=== PATIENT | male | born 1935 | race Caucasian/White ===

== ENCOUNTER → 2017-04-21 05:00 | Outpatient (REF) | payer MEDICARE, OTHER, SELFPAY ==
[2017-04-21 09:29] LABS: Anion Gap 6 (5-15); BUN 15 mg/dL (7-18); BUN/Creat Ratio 10.8 RATIO (10-20); Calcium,Total 8.4 mg/dL (8.5-10.1); Chloride 105 mmol/L (98-107); Creatinine, Serum 1.39 mg/dL (0.70-1.30); EST Glomerular Filtration Rate 52 mL/min (>60); Est Glom Filt Rate - Afr Amer 63 mL/min (>60); Glucose 99 mg/dL (70-110); Potassium 3.9 mmol/L (3.5-5.1); Sodium Level 141 mmol/L (136-145)
== END ==
LOC: OLS.DANBUR 05:00
PROVIDERS: Visit Provider Family Medicine
DX: N40.0 Benign prostatic hyperplasia without lower urinary tract symptoms (principal); I10 Essential (primary) hypertension; E78.5 Hyperlipidemia, unspecified; E03.9 Hypothyroidism, unspecified
CPT/HCPCS: 36415; 80048

== ENCOUNTER 2017-05-14 20:41 | Observation (INO) | payer MEDICARE, OTHER, SELFPAY ==
[2017-05-14] VITALS (8 sets, daily range): BP systolic 98–117; BP diastolic 61–78; PULSE 64–104; RESP 18–28; TEMP 36.7–36.9; O2SAT 95–96; BMI 30.2; BMI 28.9; BMI 30.3
--- NOTE | 2017-05-14 20:50 | RAD_ITS ---
XR Chest 1 View INDICATION: CHEST PAIN COMPARISON: October 2016 TECHNIQUE: Portable chest FINDINGS: Heart size remains within normal limits. Pulmonary vascularity is unremarkable. Interstitial markings are coarsened and there is scarring seen in the right midlung field which appears approximately stable. RAD/Chest 1 View (Portable) IMPRESSION: Stable scarring in the right midlung field. COPD. No new infiltrate at 2126 Reported and signed by: Jeanne Doyle MD Electronically Signed: Jeanne Doyle MD at 20:25 EST Tel , Service support ,
--- NOTE | 2017-05-14 20:50 | EKG12_ITS ---
Test Reason : CP Blood Pressure : / mmHG Vent. Rate : 106 BPM Atrial Rate : 106 BPM P-R Int : 140 ms QRS Dur : 126 ms QT Int : 368 ms P-R-T Axes : 046 166 030 degrees QTc Int : 488 ms Sinus tachycardia Right bundle branch block Left posterior fascicular block Bifascicular block Inferior infarct , age undetermined Abnormal ECG Confirmed by CALLUM LAM, KYLIE ([id number]), editor index JONN GILLESPIE ([id number]) on 05/16/2017 1:25:58 PM Referred By: AKIRA Confirmed By:KYLIE NOLEN MD
[2017-05-14] MEDS: 0.9% Normal Saline 1,000 ML 150 ML IV (20:53)
--- NOTE | 2017-05-14 20:53 | ED.VISSUMM ---
- ER Visit Summary Date of Service: 05/14/17 Chief Complaint: Chest pain History of Present Illness: The patient is a 82 M with multiple comorbidities including prior stroke, remote CABG, hypertension, hyperlipidemia presents to the emergency department chest pain. Patient does have a history of dementia so history is hard to gather. He is at an assisted living facility. Apparently, over the past 2 days he has been having intermittent chest pain. Tonight, the pain worsened. He states he was getting out of the car and he had a heaviness across his chest and felt like his legs were weak. He became diaphoretic. On squad arrival, he was given aspirin and nitro. He did feel like the nitro was helping his pain. He states the pain has been intermittent and does seem to be made worse with exertion. He denies any recent stress test or heart catheterization. Physical Examination: Vital signs reviewed General: Well-nourished, well-developed Head: Normocephalic, atraumatic Eyes: Pupils equal and reactive, extraocular muscles intact Neck, supple, no lymphadenopathy Heart: Regular rate and rhythm Respiratory: No distress, clear bilaterally Abdomen: Soft, nontender, nondistended, no peritoneal signs Back: Nontender Extremities: Nontender, no edema, no cords Skin: Normal color no rash Neuro: Alert and oriented, no focal or lateralizing deficits Test Results: EKG demonstrates a new left posterior fascicular block. There is no acute ischemic change. Chest x-ray unremarkable. Screening labs unremarkable. Emergency Department Course and Treatment: Resents for chest pain. He does have a significant cardiac history. His EKG shows a new bifascicular block, changed from October 2016. The patient has had intermittent pain. He has negative cardiac enzymes. His pain is markedly improved with topical nitro. As the history is hard to gather given his history of dementia, I do feel that the patient will benefit from an observation for cardiac rule out. Patient was discussed with the hospitalist and will be admitted. Treatment Plan: [] Disposition: Admission Impression:. Chest pain 2. EKG changes This note was generated with [employer] software. It may contain incorrect words, spelling, and punctuation that were not noted in review of the chart prior to signing ED Disposition - Plan for ED Patient: Chief Complaint: Chest Pain Referrals: Chase Rene MD [Primary Care Provider] -
[2017-05-14 20:59] LABS: Absolute Lymphocyte Count 2.86 X10^3/ul (0.83-4.51); Absolute Neutrophil Count 2.6 X10^3/uL (2.0-7.7); Basophil# 0.02 X10^3/uL; Basophil% 0.3 % (0-1); Eosinophil# 0.24 X10^3/uL; Eosinophils% 3.8 % (0-5); Hematocrit 47.5 % (40-54); Hemoglobin 15.8 g/dl (13.0-16.5); Lymphocyte # 2.86 X10^3/ul (4.0); Lymphocyte % 45.8 % (19-41); Mean Corp Hgb Conc 33.3 g/gl (32-36); Mean Corpuscular Hgb 30.3 pg (27.0-32.0); Mean Corpuscular Volume 91.2 fL (80-94); Mean Platelet Vol. 9.5 fl (6.2-12.0); Monocyte# 0.53 X10^3/uL; Monocyte% 8.5 % (0-10); Neutrophil # 2.59 X10^3/uL (2.7-7.7); Neutrophil % 41.4 % (47-70); Platelet Count 182 K/mm3 (150-450); RBC Distribution Width CV 14.4 % (11.6-14.6); Red Blood Count 5.21 M/mm3 (4.6-6.2); White Blood Count 6.3 K/mm3 (4.4-11.0)
[2017-05-14 21:00] LABS: POSITIVE COUNT NO; POSITIVE DIFFERENTIAL NO; POSITIVE MORPHOLOGY NO
[2017-05-14] MEDS: Nitroglycerin Oint 1 INCH PACKET TRANSDERM. (21:01)
[2017-05-14 21:15] LABS: Anion Gap 9 (5-15); BUN 12 mg/dL (7-18); BUN/Creat Ratio 9.2 RATIO (10-20); Calcium,Total 7.7 mg/dL (8.5-10.1); Chloride 110 mmol/L (98-107); EST Glomerular Filtration Rate 56 mL/min (>60); Est Glom Filt Rate - Afr Amer 68 mL/min (>60); Estimated Creatinine Clearance 48.27 ml/min; Glucose 102 mg/dL (74-106); Potassium 3.4 mmol/L (3.5-5.1); Sodium Level 143 mmol/L (136-145)
--- NOTE | 2017-05-14 22:44 | PCM.HP.STD ---
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 He had 2 episodes of chest pain. He also had chest pain several days ago. However, the chest pain today was more severe and frequent. He had pain while getting out of his car. Pain was sharp and on his left chest. He felt as if someone was stabbing him with a sharp nail through his heart. Pain immediately stopped him in his track. He felt weak and diaphoretic after the chest pain. Nitro appeared to help relieve the pain. Nothing made it worse. Pain lasted for minutes. Past Medical History Past Medical History (Chronic Problems): Chronic Problems CAD (coronary artery disease) (Chronic) HTN (hypertension) (Chronic) HLD (hyperlipidemia) (Chronic) 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) Asthma (Chronic) Depression (Chronic) Constipation (Chronic) CKD (chronic kidney disease), stage III (Chronic) Allergies fentanyl [From Duragesic] Allergy (Verified 10/02/16 22:54) Unknown Penicillins Allergy (Verified 10/02/16 22:54) Swelling Home Medications: Ambulatory Orders Medication Instructions Recorded Duloxetine Hcl [Cymbalta] 30 mg PO BID 05/31/14 Dorzolamide Hydrochloride/Ti 1 drop EACH EYE BID bottle 09/20/16 [Cosopt Opth Drops] Mirtazapine [Remeron] 7.5 mg PO QHS tablet 09/20/16 Pravastatin [Pravachol] 40 mg PO DAILY@2200 tablet 09/20/16 Quetiapine Fumarate [Seroquel] 300 mg PO QHS tablet 09/20/16 Senna/Docusate Sodium [Senokot-S] 2 tablet PO DAILY #60 tablet 09/20/16 Clopidogrel Bisulfate [Plavix] 75 mg PO DAILY 10/03/16 Tamsulosin HCl [Flomax] 0.4 mg PO DAILY 10/03/16 Acetaminophen [Tylenol Tablet] 650 mg PO Q4H PRN PRN tablet 10/06/16 Aspirin [Aspirin, Baby] 81 mg PO DAILY@0800 #90 tab.chew 10/06/16 Clonazepam [Klonopin] 0.5 mg PO BID 05/14/17 Clonazepam [Klonopin] 0.5 mg PO PRN PRN 05/14/17 Surgical History: no surgical history Smoking Status: Former smoker - *Family History Maternal History Items: Unknown Paternal History Items: Unknown Review of Systems Constitutional: Denies: Chills, Fever, Weight Change HEENT: Denies: Head Aches, Sinus Congestion, Sinus Drainage Cardiovascular: Reports: Chest Pain, Heaviness. Denies: Palpitations Respiratory: Denies: Cough, Shortness of breath at rest, Sputum production Gastrointestinal: Denies: Abdominal Pain, Nausea, Vomiting Genitourinary: Denies: Dysuria Musculoskeletal: Denies: Joint Pain, Joint Tenderness Skin: Denies: Rash, Wounds Neurological: Denies: Numbness, Tingling, Focal weakness Psychiatric: Denies: Anxiety, Depression, Homicidal Ideations, Suicidal Ideations Hematologic/ Lymphatic: Denies: Easy Bruising, Easy Bleeding VTE Information - Inpt Only VTE Present on Admission: No VTE Mechan Device Prophylaxis: SCD's VTE Pharm Prophylaxis ordered?: Yes Patient Problems: Active and Suspected Problems Chest pain (Acute) - Physical Exam General: Alert, Oriented x3, Cooperative HEENT: Atraumatic, PERRLA, EOMI, Normocephalic Neck: Supple, No JVD, Negative Carotid Bruits Lungs: Clear to auscultation, Normal air movement Cardiovascular: Regular rate, Murmur - II/ systolic murmur Abdomen: Bowel Sounds Present, Soft, Non Tender Extremities: No edema, Capillary Refill Less than 3 Seconds Skin: No rashes, No breakdown Musculoskeletal: No Tenderness to Palpation of Joints or Extremities Neurological: Cranial nerves II-XII grossly intact Psych/Mental Status: Normal Affect, Appropriate Vital Signs Temp Pulse Resp BP Pulse Ox 98.4 F 91 28 H 117/76 96 05/14/17 20:43 05/14/17 22:29 05/14/17 22:29 05/14/17 22:29 05/14/17 22:29 Assessment/Plan Active and Suspected Problems Chest pain (Acute) 82 year old male w/ h/o stroke, dementia, CABG, HTN and lipidemia admitted for chest pain. 1) Chest pain: Heart score 5 EKG disclosed new bifascicular block. First trop negative. Will get serial trops. Will get ECHO. Stress test in AM. C/w medical management. 2) H/o CABG: Resume home meds. Monitor. 3) Chronic issues: HTN, lipidemia, stroke, dementia: Resume home meds. 4) Prophylaxis: Heparin / SCD.
[2017-05-15] VITALS (11 sets, daily range): BP systolic 110–133; BP diastolic 65–78; PULSE 60–81; RESP 16–18; TEMP 36.4–37.2; O2SAT 97
[2017-05-15] MEDS: 0.9% Normal Saline 1,000 ML 100 ML IV ×2 (03:20→15:05)
[2017-05-15 05:28] LABS: Absolute Lymphocyte Count 2.34 X10^3/ul (0.83-4.51); Absolute Neutrophil Count 2.4 X10^3/uL (2.0-7.7); Basophil# 0.02 X10^3/uL; Basophil% 0.4 % (0-1); Eosinophil# 0.25 X10^3/uL; Eosinophils% 4.6 % (0-5); Hematocrit 43.8 % (40-54); Hemoglobin 14.6 g/dl (13.0-16.5); Lymphocyte # 2.34 X10^3/ul (4.0); Lymphocyte % 42.7 % (19-41); Mean Corp Hgb Conc 33.3 g/gl (32-36); Mean Corpuscular Hgb 30.3 pg (27.0-32.0); Mean Corpuscular Volume 90.9 fL (80-94); Mean Platelet Vol. 9.6 fl (6.2-12.0); Monocyte# 0.48 X10^3/uL; Monocyte% 8.8 % (0-10); Neutrophil # 2.35 X10^3/uL (2.7-7.7); Neutrophil % 42.8 % (47-70); Platelet Count 190 K/mm3 (150-450); RBC Distribution Width CV 14.6 % (11.6-14.6); RBC Distribution Width SD 47.6 fl (35.1-43.9); Red Blood Count 4.82 M/mm3 (4.6-6.2); White Blood Count 5.5 K/mm3 (4.4-11.0)
[2017-05-15 05:32] LABS: POSITIVE COUNT NO; POSITIVE DIFFERENTIAL NO; POSITIVE MORPHOLOGY NO
--- NOTE | 2017-05-15 05:55 | ECHOD_ITS ---
Reason For Study: CHEST PAIN Procedure This was a 2D Doppler, Color Flow transthoracic echocardiogram. The exam was of poor technical quality due to poor acoustic windows. Contrast injection was performed. Exam performed portable in patient room. Left Ventricle Normal LV size. Left ventricular systolic function is normal. The estimated ejection fraction is 60 %. No regional wall motion abnormalities noted. Right Ventricle Normal RV size. Normal systolic function. Atria Normal left atrium. Normal right atrium. Mitral Valve Normal mitral valve. Tricuspid Valve Normal tricuspid valve. Trivial tricuspid valve insufficiency. Aortic Valve The aortic valve is not well visualized. Mild focal aortic valve calcification. Peak aortic valve gradient 29 mmHg. Mean aortic valve gradient 18 mmHg. Calculated aortic valve area (continuity equation) is 1.6 cm2. Pulmonic Valve The pulmonic valve is not well visualized. Great Vessels Calcified aortic root. The pulmonary artery is normal size. Normal inferior vena cava. Pericardium/Pleural No pericardial effusion. Medication Diluted definity 3ml given slow IV push to enhance endocardial definition. MMode/2D Measurements & Calculations RVDd: 3.6 cm LVOT diam: 2.2 cm Ao root diam: 3.5 cm LVOT area: 3.8 cm2 LAV(MOD-bp): 34.5 ml LVAd ap4: 25.6 cm2 SV(MOD-sp4): 52.2 ml LAV(MOD-bp) Indexed: 16.2 ml/m2 EDV(MOD-sp4): 70.4 ml LAV(MOD-sp2): 41.5 ml EDV(sp4-el): 73.2 ml LAV(MOD-sp4): 22.9 ml LVAs ap4: 11.9 cm2 ESV(MOD-sp4): 18.2 ml ESV(sp4-el): 18.9 ml EF(MOD-sp4): 74.1 % EF(sp4-el): 74.1 % SV(sp4-el): 54.2 ml LA A4 area: 11.7 cm2 RA A4 area: 11.2 cm2 Doppler Measurements & Calculations MV E max axel: 83.5 cm/sec MV V2 max: 104.4 cm/sec Ao V2 max: 268.0 cm/sec MV max P.4 mmHg Ao max P.0 mmHg MV V2 mean: 63.8 cm/sec Ao V2 mean: 197.9 cm/sec MV mean P.8 mmHg Ao mean P.9 mmHg MV V2 VTI: 33.2 cm Ao V2 VTI: 60.2 cm MVA(VTI): 3.2 cm2 KIRSTEN(I,D): 1.7 cm2 KIRSTEN(V,D): 1.6 cm2 LV V1 max: 115.5 cm/sec SV(LVOT): 104.7 ml TR max axel: 186.6 cm/sec LV V1 max P.3 mmHg TR max P.9 mmHg LV V1 mean P.0 mmHg LV V1 mean: 80.7 cm/sec LV V1 VTI: 27.7 cm Interpretation Summary Normal LV size. Left ventricular systolic function is normal. The estimated ejection fraction is 60 %. Mild focal aortic valve calcification. Calculated aortic valve area (continuity equation) is 1.6 cm2. Calcified aortic root. Ordering Physician: Alex Andres Referring Physician: MAGGIE BHARDWAJ Performed By: Rosa Dwyer, TAO, RVT
--- NOTE | 2017-05-15 05:57 | RAD_ITS ---
STUDY: X-RAY CHEST REASON FOR EXAM: Male, 82 years old. Chest pain TECHNIQUE: PA and lateral views of the chest. COMPARISON: October 02, 2016 chest x-ray FINDINGS: There is a focal opacity in the right upper lobe which is worse since prior studies. There is bandlike density overlying the right hemidiaphragm. The lungs are somewhat hyperlucent suggesting underlying emphysematous change. There is no demonstrated pleural abnormality. Sternal cerclage wires are present from a prior sternotomy. Normal mediastinum and kya. Normal visualized pulmonary arteries. There is atherosclerotic tortuosity of the aortic arch and descending thoracic aorta. Normal visualized thoracic spine. Normal visualized ribs, clavicles, and shoulders. There is no demonstrated abnormality of the visualized soft tissue structures of the upper abdomen. RAD/Chest PA and Lateral IMPRESSION: Larger right upper lobe patchy opacity suspicious for pneumonia. Status post sternotomy. N.B. : The above information has been verbally conveyed by Kirsten Camara MD to Mynor Guadalupe , Covering Physician, on 05/15/2017 08:44:14 (ET). Electronically Signed: Kirsten Camara MD at 8:32 EST Tel , Service support , N.B. : The above information has been verbally conveyed by Kirsten Camara MD to Mynor Guadalupe , Covering Physician, on 05/15/2017 08:44:14 (ET).
[2017-05-15 06:57] LABS: AST(SGOT) 21 U/L (15-37); Alanine Aminotransfer ALT/SGPT 25 U/L (16-61); Alkaline Phosphatase 49 U/L (45-117); Anion Gap 9 (5-15); BUN 13 mg/dL (7-18); BUN/Creat Ratio 9.9 RATIO (10-20); Calcium,Total 7.6 mg/dL (8.5-10.1); Chloride 108 mmol/L (98-107); Cholesterol 106 mg/dL (200); Creatinine, Serum 1.31 mg/dL (0.70-1.30); EST Glomerular Filtration Rate 56 mL/min (>60); Est Glom Filt Rate - Afr Amer 68 mL/min (>60); Estimated Creatinine Clearance 46.44 ml/min; Glucose 92 mg/dL (74-106); High Density Lipoprotein 36 mg/dL; Magnesium 2.2 mg/dL (1.6-2.6); Potassium 3.8 mmol/L (3.5-5.1); Sodium Level 141 mmol/L (136-145); Thyroid Stim Hormone (TSH) 3.83 uIU/mL (0.358-3.74); Triglycerides 87 mg/dL; Very Low Density Lipoprotein 17 mg/dL (5-40)
[2017-05-15] MEDS: Aspirin 81 MG TAB.CHEW PO (08:19)
--- NOTE | 2017-05-15 08:45 | CT_ITS ---
STUDY: CT CHEST WITHOUT CONTRAST REASON FOR EXAM: Male, 82 years old. Right lung infiltrate chest pain and hypertension CABG RADIATION DOSAGE (If Supplied By Facility): CTDIvol = ( 19.12 ) mGy, DLP = ( 683.40 ) mGycm TECHNIQUE: Transaxial imaging was performed without the administration of intravenous contrast material. Multiplanar coronal and sagittal images were reformatted. Individualized dose optimization techniques were used for this CT. COMPARISON: Chest x-ray May 15, 2017, CT scan chest March 17, 2016 FINDINGS: Within the right upper lobe there is a small focal nodule which is new since prior study in the region of prior fibrosis or groundglass opacity that measures 1.1 x 0.9 cm. This is adjacent to focal opacity or developing nodular density measures roughly 1.8 x 1.7 cm. There is trace atelectasis in the lung bases left greater than right. There are coronary calcifications. There is borderline cardiac enlargement. There is postoperative change. Sternotomy wires are seen midline. There are nonspecific subcentimeter lymph nodes in the mediastinum. There is a precarinal calcified lymph nodes stable since prior study. Is a calcified granuloma in the right. There is a right infrahilar calcification compatible with old granulomatous disease. There is a noncalcified lymph node measuring 1.1 cm between the right lower bronchus and the esophagus measuring 1.1 cm similar to prior study. Normal unenhanced pulmonary arteries. There is atherosclerotic calcification of the aortic arch with tortuosity and elongation of the aortic arch and descending thoracic aorta. There are multi-level degenerative changes of the thoracic spine. There is a small hiatal hernia which is surrounded by small amount of intraperitoneal fat. There is colonic interposition with the colon anterior to the liver. There is a mildly inhomogeneous appearance of the gallbladder suggesting probable gallstones. This visualize atherosclerotic disease aorta. The adrenal glands bilaterally are of normal size. CT/Chest without Contrast IMPRESSION: Interval development of a 1.1 x 0.8 cm focal nodular opacity in the right upper lobe with adjacent inflammatory change. Potentially this could represent a small focal infection however neoplasm should be considered until proven otherwise. Status post sternotomy coronary artery disease minimal bilateral lower lobe atelectasis similar to the prior study. Findings suggestive of cholelithiasis. Small hiatal hernia. Nonspecific stable mediastinal lymphadenopathy including evidence of old granulomatous disease. N.B. : The above information has been verbally conveyed by Kirsten Camara MD to Dr. Mynor Perez, Covering Physician, on 05/15/2017 10:17:10 (ET). Electronically Signed: Kirsten Camara MD at 10:12 EST Tel , Service support , N.B. : The above information has been verbally conveyed by Kirsten Camara MD to Dr. Mynor Perez, Covering Physician, on 05/15/2017 10:17:10 (ET).
--- NOTE | 2017-05-15 10:20 | PN_ITS ---
Patient Problems: Active and Suspected Problems Chest pain (Acute) Subjective: Patient was seen and examined today, he does not complain of any chest pain, been negative, he states that he had severe chest pain yesterday, he is a poor informant due to the fact he has dementia. I explained to him that he would undergo a stress test tomorrow and an echocardiogram. In 2014 he had a cardiac catheterization which showed a 60-70% occlusion of the circumflex and a chronically occluded right coronary artery, this was followed up by a stress test which showed no reversible ischemia. I was notified by radiology today that his chest x-ray showed a right midlung infiltrate, his chest x-ray last night was read out as scarring in the right lung. I have ordered a CT today without contrast to look at the area. Lives in assisted living at [facility] - Physical Exam General: Alert, Cooperative, No apparent distress, Well developed, Well nourished HEENT: Atraumatic, PERRLA, EOMI, Normocephalic Oral: Moist Mucosa Neck: Supple, No JVD, Negative Carotid Bruits, No Nuchal Rigidity, Trachea Midline, Thyroid Normal Size and Texture Lungs: Clear to auscultation, Normal air movement, No rhonchi, No wheeze, No rales Cardiovascular: Regular rate, Regular Rhythm, Normal S1, Normal S2, No murmurs, No Ectopic Activity, PMI Normal, No rub noted, No Gallop Abdomen: Bowel Sounds Present, Soft, Non Tender, Non-Distended, No hernias noted Extremities: No clubbing, No cyanosis, No edema, Capillary Refill Less than 3 Seconds Skin: No rashes, No breakdown Musculoskeletal: No Tenderness to Palpation of Joints or Extremities Neurological: Cranial nerves II-XII grossly intact, Neuro grossly intact, Motor Exam 5/5 strength throughout, Sensory exam intact to light touch and pain, Coordination normal Psych/Mental Status: Normal Affect, Appropriate, - - There is mild confusion noted Vital Signs Temp Pulse Resp BP Pulse Ox 97.5 F L 60 18 113/71 97 05/15/17 04:12 05/15/17 07:00 05/15/17 04:12 05/15/17 04:12 05/15/17 07:50 Oxygen Flow Rate 2 Oxygen Delivery Method Nasal Cannula Weight: 93.7 kg Body Mass Index (BMI) 28.9 Intake and Output for Last 24 Hours 05/13/17 05/14/17 05/15/17 23:59 23:59 23:59 Intake Total 240 / 240 786 / 786 Balance 240 / 240 786 / 786 Laboratory Tests Past 24 Hrs 05/15/17 05/15/17 05/15/17 00:30 04:40 04:40 WBC 5.5 RBC 4.82 Hgb 14.6 Hct 43.8 MCV 90.9 MCH 30.3 MCHC 33.3 RDW 14.6 RDW Differential 47.6 H Plt Count 190 MPV 9.6 Immature Gran % (Auto) 0.700 Neut % (Auto) 42.8 L Lymph % (Auto) 42.7 H [place] % (Auto) 8.8 Eos % (Auto) 4.6 Baso % (Auto) 0.4 Absolute Neuts (auto) 2.4 Absolute Lymphs (auto) 2.34 Total Counted Not Reportable Sodium 141 Potassium 3.8 Chloride 108 H Carbon Dioxide 24.0 Anion Gap 9 BUN 13 Creatinine 1.31 H Estim Creat Clear Calc 46.44 Est GFR (MDRD) Af Amer 68 Est GFR (MDRD) Non-Af 56 L BUN/Creatinine Ratio 9.9 L Glucose 92 Calcium 7.6 L Magnesium 2.2 Total Bilirubin 0.50 AST 21 ALT 25 Alkaline Phosphatase 49 Troponin I < 0.02 Total Protein 6.0 L Albumin 3.0 L Globulin 3.0 Albumin/Globulin Ratio 1.0 Triglycerides 87 Cholesterol 106 LDL Cholesterol 53 VLDL Cholesterol 17 HDL Cholesterol 36 L TSH 3.83 H 05/15/17 04:40 WBC RBC Hgb Hct MCV MCH MCHC RDW RDW Differential Plt Count MPV Immature Gran % (Auto) Neut % (Auto) Lymph % (Auto) [place] % (Auto) Eos % (Auto) Baso % (Auto) Absolute Neuts (auto) Absolute Lymphs (auto) Total Counted Sodium Potassium Chloride Carbon Dioxide Anion Gap BUN Creatinine Estim Creat Clear Calc Est GFR (MDRD) Af Amer Est GFR (MDRD) Non-Af BUN/Creatinine Ratio Glucose Calcium Magnesium Total Bilirubin AST ALT Alkaline Phosphatase Troponin I < 0.02 Total Protein Albumin Globulin Albumin/Globulin Ratio Triglycerides Cholesterol LDL Cholesterol VLDL Cholesterol HDL Cholesterol TSH Assessment/Plan Active and Suspected Problems Chest pain (Acute) #1 chest pain in a patient with known coronary artery disease-enzymes are negative so far, patient will undergo a pharmacological resting nuclear stress test tomorrow and echocardiogram. #2 abnormal chest x-ray-CT scan of the chest today showed a nodule approximately 1 cm in diameter surrounded by an area of inflammation according to the radiologist in the right upper lung. This will need to be worked up further after the patient has his cardiac workup #3 hyperlipidemia #4 dementia #5 hypertension #6 chronic kidney disease stage III #7 depression Code Visit Inpatient E&M: 24716 Subs Hosp L2
[2017-05-15] MEDS: DULoxetine Hcl 30 MG Capsule PO ×2 (10:43→21:21)
[2017-05-15] MEDS: Carvedilol 3.125 MG TABLET PO ×2 (10:43→21:21)
[2017-05-15] MEDS: Clopidogrel Bisulfate 75 MG Tablet PO (10:43)
[2017-05-15] MEDS: Tamsulosin HCl 0.4 MG Capsule PO (10:43)
[2017-05-15] MEDS: Senna/Docusate Sodium 1 Tablet 2 TABLET PO (10:45)
[2017-05-15] MEDS: clonazePAM 0.5 MG Tablet PO ×2 (10:47→21:29)
[2017-05-15] MEDS: Pravastatin 40 MG Tablet PO (21:20)
[2017-05-15] MEDS: QUEtiapine 100 MG Tablet 300 MG PO (21:20)
[2017-05-15] MEDS: Mirtazapine 15 MG Tablet 7.5 MG PO (21:21)
[2017-05-15] MEDS: Zolpidem Tartrate 5 MG Tablet PO (22:25)
[2017-05-16] VITALS (9 sets, daily range): BP systolic 108–129; BP diastolic 63–69; PULSE 63–73; RESP 16–18; TEMP 36.4–36.9; O2SAT 93–99
[2017-05-16] MEDS: 0.9% Normal Saline 1,000 ML 100 ML IV ×2 (00:15→11:05)
[2017-05-16] MEDS: Clopidogrel Bisulfate 75 MG Tablet PO (05:43)
[2017-05-16] MEDS: Aspirin 81 MG TAB.CHEW PO (05:43)
--- NOTE | 2017-05-16 05:55 | EKG12_ITS ---
Test Reason : AM Blood Pressure : / mmHG Vent. Rate : 073 BPM Atrial Rate : 073 BPM P-R Int : 162 ms QRS Dur : 132 ms QT Int : 428 ms P-R-T Axes : 042 062 038 degrees QTc Int : 471 ms Normal sinus rhythm Right bundle branch block Abnormal ECG When compared with ECG of 14-MAY-2017 20:42, MANUAL COMPARISON REQUIRED, DATA IS UNCONFIRMED Confirmed by TERRANCE LAM, JAJA ([id number]), publishing editor JONN GILLESPIE ([id number]) on 05/17/2017 2:00:57 PM Referred By: AUGUSTO Confirmed By:JAJA CARLOS MD
[2017-05-16 06:08] LABS: Absolute Lymphocyte Count 1.76 X10^3/ul (0.83-4.51); Absolute Neutrophil Count 2.4 X10^3/uL (2.0-7.7); Basophil# 0.01 X10^3/uL; Basophil% 0.2 % (0-1); Eosinophil# 0.21 X10^3/uL; Eosinophils% 4.5 % (0-5); Hematocrit 42.9 % (40-54); Hemoglobin 14.6 g/dl (13.0-16.5); Lymphocyte # 1.76 X10^3/ul (4.0); Lymphocyte % 37.8 % (19-41); Mean Corpuscular Hgb 30.7 pg (27.0-32.0); Mean Corpuscular Volume 90.1 fL (80-94); Mean Platelet Vol. 9.5 fl (6.2-12.0); Monocyte% 6.5 % (0-10); Neutrophil # 2.36 X10^3/uL (2.7-7.7); Neutrophil % 50.8 % (47-70); Platelet Count 181 K/mm3 (150-450); RBC Distribution Width CV 14.4 % (11.6-14.6); RBC Distribution Width SD 47.4 fl (35.1-43.9); Red Blood Count 4.76 M/mm3 (4.6-6.2); White Blood Count 4.7 K/mm3 (4.4-11.0)
[2017-05-16 06:17] LABS: International Normalized Ratio 1.1; Prothrombin Time (Protime)PT. 13.7 SECONDS (11.7-14.9)
[2017-05-16 06:18] LABS: Partial Thromboplast Time 36.4 Seconds (24.1-36.2)
[2017-05-16 06:27] LABS: Anion Gap 8 (5-15); BUN 11 mg/dL (7-18); BUN/Creat Ratio 9.9 RATIO (10-20); Calcium,Total 7.8 mg/dL (8.5-10.1); Chloride 110 mmol/L (98-107); Creatinine, Serum 1.11 mg/dL (0.70-1.30); EST Glomerular Filtration Rate 68 mL/min (>60); Est Glom Filt Rate - Afr Amer 82 mL/min (>60); Glucose 94 mg/dL (74-106); Potassium 3.8 mmol/L (3.5-5.1); Sodium Level 141 mmol/L (136-145)
[2017-05-16 06:32] LABS: POSITIVE COUNT NO; POSITIVE DIFFERENTIAL NO; POSITIVE MORPHOLOGY NO
--- NOTE | 2017-05-16 10:39 | STRESSREP ---
Stress Test Report Pharmacologic myocardial perfusion stress test. 82-year-old man with a history of chest pain. Stress protocol Resting EKG demonstrates sinus rhythm with a rate of 68 bpm and a right bundle branch block. 0.4 mg of regadenoson was infused per usual protocol followed by rapid intravenous saline flush injection continuous EKG monitoring was performed. The maximum heart rate attained was 83 bpm which was 59% of the maximum predicted heart rate the maximum workload attained was 1 metabolic equivalent. The patient maintained sinus rhythm throughout the recording. At rest there were no ST or T-wave changes noted suggest abnormal flow reserve at peak infusion no ST or T-wave changes were noted suggest abnormal flow reserve. No clinical angina was noted. Myocardial perfusion protocol: 14.1 mCi of technetium 99m sestamibi was injected at rest. 0.4 mg regadenoson was infused per usual protocol. At peak infusion 44.6 mCi of technetium 99m sestamibi was injected. Stress images were obtained. Stress and rest images were reconstructed and compared in the short axis vertical long and horizontal long axis. Gated images were also obtained. Perfusion SPECT analysis:. Review of the stress images demonstrate a medium-sized defect noted involving the basal to mid inferior wall on the stress images as well as the resting images. The above was suggestive of a previous inferior infarct with no reversibility noted suggest ischemia. gated SPECT analysis: The gated ejection fraction is noted to be 81%. Conclusion: Pharmacologic myocardial perfusion stress test with no evidence of ischemia. Previous inferior infarct is noted in a medium-sized zone. Preserved ejection fraction.
[2017-05-16] MEDS: Senna/Docusate Sodium 1 Tablet 2 TABLET PO (10:57)
[2017-05-16] MEDS: Tamsulosin HCl 0.4 MG Capsule PO (10:57)
[2017-05-16] MEDS: DULoxetine Hcl 30 MG Capsule PO (10:57)
[2017-05-16] MEDS: Carvedilol 3.125 MG TABLET PO (10:57)
[2017-05-16] MEDS: clonazePAM 0.5 MG Tablet PO (11:04)
--- NOTE | 2017-05-16 15:36 | PCM.DC ---
- Discharge Diagnoses Current Active Problems: Current Active and Chronic Problems Chest pain (Acute) You will use the following diet at home:: No restrictions Your food should be the consistency of: Regular Your liquids should be the consistency of: Regular/Thin Discharge Activity: Return to Normal Activity Weight Bearing Status: Full weight bearing Allergies/Adverse Reactions: Allergies fentanyl [From Duragesic] Allergy (Verified 10/02/16 22:54) Unknown Penicillins Allergy (Verified 10/02/16 22:54) Swelling Medications to take at Discharge Duloxetine Hcl [Cymbalta] 30 mg PO BID 05/31/14 Dorzolamide Hydrochloride/Ti [Cosopt Opth Drops] 1 drop EACH EYE BID bottle 09/20/16 Mirtazapine [Remeron] 7.5 mg PO QHS tablet 09/20/16 Pravastatin [Pravachol] 40 mg PO DAILY@2200 tablet 09/20/16 Quetiapine Fumarate [Seroquel] 300 mg PO QHS tablet 09/20/16 Senna/Docusate Sodium [Senokot-S] 2 tablet PO DAILY #60 tablet 09/20/16 Clopidogrel Bisulfate [Plavix] 75 mg PO DAILY 10/03/16 Tamsulosin HCl [Flomax] 0.4 mg PO DAILY 10/03/16 Acetaminophen [Tylenol Tablet] 650 mg PO Q4H PRN PRN tablet 10/06/16 Aspirin [Aspirin, Baby] 81 mg PO DAILY@0800 #90 tab.chew 10/06/16 Clonazepam [Klonopin] 0.5 mg PO BID 05/14/17 Clonazepam [Klonopin] 0.5 mg PO PRN PRN 05/14/17 Primary Care Physician: Chase Rene MD [Primary Care Provider] - Please follow up with your Primary Care Physician in: in 2-3 weeks
--- NOTE | 2017-05-16 15:55 | CASEMGMT ---
Due to pt's hx of dementia, this RN SOLIS spoke with pt's daughter, Liliana Abrams, via phone regarding MCLEOD form at this time. Explanation done at this time, daughter voices understanding and agrees to MCLEOD form at this time and states no further questions/concerns at this time. Copy of MCLEOD form sent with pt with discharge instructions. Meng WANG CM
--- NOTE | 2017-05-16 16:50 | NURSING ---
Report called to Usha WANG, at [facility].
--- NOTE | 2017-05-16 23:08 | PCM.DC.SUM ---
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 Workup in the emergency room included an EKG which showed no evidence of ischemic changes, chest x-ray was unremarkable, labs were also unremarkable including troponin. Patient was placed into observation status on PCU, cardiac enzymes were cycled and these remained normal. Patient underwent an echocardiogram and a resting pharmacological nuclear stress test on 05/16/17, stress test showed no evidence of reversible ischemia and echocardiogram showed preserved EF. On 05/16/17, patient was seen and examined and felt to be in stable condition for return to assisted living Discharge Activity: Return to Normal Activity Weight Bearing Status: Full weight bearing Home Medications: Medications to take at Discharge Duloxetine Hcl [Cymbalta] 30 mg PO BID 05/31/14 Dorzolamide Hydrochloride/Ti [Cosopt Opth Drops] 1 drop EACH EYE BID bottle 09/20/16 Mirtazapine [Remeron] 7.5 mg PO QHS tablet 09/20/16 Pravastatin [Pravachol] 40 mg PO DAILY@2200 tablet 09/20/16 Quetiapine Fumarate [Seroquel] 300 mg PO QHS tablet 09/20/16 Senna/Docusate Sodium [Senokot-S] 2 tablet PO DAILY #60 tablet 09/20/16 Clopidogrel Bisulfate [Plavix] 75 mg PO DAILY 10/03/16 Tamsulosin HCl [Flomax] 0.4 mg PO DAILY 10/03/16 Acetaminophen [Tylenol Tablet] 650 mg PO Q4H PRN PRN tablet 10/06/16 Aspirin [Aspirin, Baby] 81 mg PO DAILY@0800 #90 tab.chew 10/06/16 Clonazepam [Klonopin] 0.5 mg PO BID 05/14/17 Clonazepam [Klonopin] 0.5 mg PO PRN PRN 05/14/17 Primary Care Physician: Chase Rene MD [Primary Care Provider] - Please follow up with your Primary Care Physician in: in 2-3 weeks Disposition: Asstd Living/Non-Skill NH Minutes spent on discharge:: 25 Patient Condition:: Stable Meaningful Use Info Meaningful Use Diagnoses (Choose all that apply): None applicable Code Visit OBSV E&M: 99740 Observation care discharge
--- NOTE | 2017-05-16 23:11 | DS.PCM_ITS ---
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 Workup in the emergency room included an EKG which showed no evidence of ischemic changes, chest x-ray was unremarkable, labs were also unremarkable including troponin. Patient was placed into observation status on PCU, cardiac enzymes were cycled and these remained normal. Patient underwent an echocardiogram and a resting pharmacological nuclear stress test on 05/16/17, stress test showed no evidence of reversible ischemia and echocardiogram showed preserved EF. On 05/16/17, patient was seen and examined and felt to be in stable condition for return to assisted living Discharge Activity: Return to Normal Activity Weight Bearing Status: Full weight bearing Home Medications: Medications to take at Discharge Duloxetine Hcl [Cymbalta] 30 mg PO BID 05/31/14 Dorzolamide Hydrochloride/Ti [Cosopt Opth Drops] 1 drop EACH EYE BID bottle Mirtazapine [Remeron] 7.5 mg PO QHS tablet 09/20/16 Pravastatin [Pravachol] 40 mg PO DAILY@2200 tablet 09/20/16 Quetiapine Fumarate [Seroquel] 300 mg PO QHS tablet 09/20/16 Senna/Docusate Sodium [Senokot-S] 2 tablet PO DAILY #60 tablet 09/20/16 Clopidogrel Bisulfate [Plavix] 75 mg PO DAILY 10/03/16 Tamsulosin HCl [Flomax] 0.4 mg PO DAILY 10/03/16 Acetaminophen [Tylenol Tablet] 650 mg PO Q4H PRN PRN tablet 10/06/16 Aspirin [Aspirin, Baby] 81 mg PO DAILY@0800 #90 tab.chew 10/06/16 Clonazepam [Klonopin] 0.5 mg PO BID 05/14/17 Clonazepam [Klonopin] 0.5 mg PO PRN PRN 05/14/17 Primary Care Physician: Chase Rene MD [Primary Care Provider] - Please follow up with your Primary Care Physician in: in 2-3 weeks Disposition: Asstd Living/Non-Skill NH Minutes spent on discharge:: 25 Patient Condition:: Stable Meaningful Use Info Meaningful Use Diagnoses (Choose all that apply): None applicable Code Visit OBSV E&M: 17830 Observation care discharge
== END 2017-05-16 15:37 | disposition home or self-care (01) ==
LOC: ED 21:12 → PCU 22:41
PROVIDERS: Admitting Provider Internal Medicine; Emergency Provider Emergency Medicine; Family Provider Family Medicine; PCP Family Medicine; Visit Provider Internal Medicine
DX: R07.89 Other chest pain (principal); I25.10 Atherosclerotic heart disease of native coronary artery without angina pectoris; E78.5 Hyperlipidemia, unspecified; F10.21 Alcohol dependence, in remission; I12.9 Hypertensive chronic kidney disease with stage 1 through stage 4 chronic kidney disease, or unspecified chronic kidney disease; N18.3 Chronic kidney disease, stage 3 (moderate); F03.90 Unspecified dementia, unspecified severity, without behavioral disturbance, psychotic disturbance, mood disturbance, and anxiety; F41.9 Anxiety disorder, unspecified; F32.9 Major depressive disorder, single episode, unspecified; R91.1 Solitary pulmonary nodule; K59.09 Other constipation; J45.909 Unspecified asthma, uncomplicated; Z79.02 Long term (current) use of antithrombotics/antiplatelets; Z79.899 Other long term (current) drug therapy; Z79.82 Long term (current) use of aspirin; Z95.1 Presence of aortocoronary bypass graft; Z86.73 Personal history of transient ischemic attack (TIA), and cerebral infarction without residual deficits; Z87.891 Personal history of nicotine dependence
CPT/HCPCS: 36415; 71045; 71046; 71250; 78452; 80048; 80053; 80061; 83735; 84443; 84484; 85025; 85610; 85730; 93005; 93017; 93306; 96360; 96361; 96372; 97162; 97165; 99218; 99285; A9500; J7030; Q9957; A4216; C8929; G0378; J2785

== ENCOUNTER 2017-10-07 18:56 | Emergency (ER) | payer MEDICARE, OTHER, SELFPAY ==
[2017-10-07 18:57] VITALS: BP 151/93; PULSE 96; RESP 18; TEMP 37.1; O2SAT 96; BMI 28.8
--- NOTE | 2017-10-07 19:15 | CT_ITS ---
STUDY: CT BRAIN WITHOUT CONTRAST REASON FOR EXAM: Male, 82 years old. Trauma RADIATION DOSAGE (If Supplied By Facility): CTDIvol = ( 60.81 ) mGy, DLP = ( 1089.89 ) mGycm TECHNIQUE: Transaxial CT imaging of the brain was performed without administration of intravenous contrast material. Individualized dose optimization techniques were used for this CT. COMPARISON: September 02, 2016. FINDINGS: Normal soft tissue structures. Normal calvarium. Calcification of the cavernous carotid Moderate atrophy and periventricular white matter ischemic changes.. Normal basal ganglia and thalami. Normal brainstem. Normal cerebellum. There is no intracranial hemorrhage. There are no findings of an acute ischemic infarction. Postsurgical changes of the orbits. Normal visualized paranasal sinuses. CT/Brain/Head without Contrast IMPRESSION: Moderate atrophy and periventricular white matter ischemic changes.. No evidence for acute intracranial bleed Electronically Signed: Trae Clancy MD at 19:56 EDT , Service support ,
[2017-10-07] MEDS: Acetaminophen 500 MG Tablet 1000 MG PO (19:21)
[2017-10-07] MEDS: Diphth,Pertuss(Acell),Tet Vac 0.5 ML Vial IM (19:21)
[2017-10-07 19:25] VITALS: O2SAT 97
--- NOTE | 2017-10-07 20:23 | ED.VISSUMM ---
- ER Visit Summary Date of Service: 10/07/17 Chief Complaint: Fall History of Present Illness: The patient is a [address] Chase Rene. He reports that he usually uses a cane and a walker to get around. He states he is an area of his house that it was very difficult to use his walker and he lost his balance and fell. He hit his face on the ground. Did not have a loss of consciousness. He is not on blood thinners. He reports that he has back pain is 5 out of 10 severity. Bilateral knee pain is 5 out of 10 severity. He denies any neck pain, shoulder, wrist, or hip pain. Physical Examination: Vitals: Stable. Afebrile. Head: Abrasion to his forehead just above his right eyebrow. He has a 2 cm laceration to the bridge of his nose without active bleeding. Neck: No vertebral tenderness. Full ROM without difficulty. Cleared by NEXUS criteria. Back: No vertebral tenderness. General: A&O x 3. NAD. Cardiovascular exam: Regular rate and rhythm, no murmur, rub or gallop. Respiratory exam: Chest nontender. No crepitus. Clear to auscultation bilaterally. No wheezes or stridor. Abdominal exam: Soft, nontender, nondistended, normal bowel sounds. No pain in RUQ or LUQ specifically. No peritoneal signs. Extremity: Atraumatic. No pain with range of motion. Test Results: CT brain shows chronic changes and no intracranial hemorrhage. Emergency Department Course and Treatment: Patient is given Tylenol p.o. He had his tetanus updated. He has been anesthetized and repaired. He tolerated this well. Treatment Plan: Instructed to follow-up Dr. Chase Rene as previously scheduled. Return to the emergency department for any worsening symptoms. Disposition: To home in improved and stable condition. Impression: 1. Mechanical fall. 2. Nasal laceration, 2 cm, repaired. Procedure note: Wound was cleansed with chlorhexidine soap. Anesthetized with 1% lidocaine without epinephrine. Copiously irrigated with normal saline. Wound was explored there is no foreign material present. It was closed with 4 simple interrupted 5-0 rapid Vicryl sutures. The patient tolerated it well. This note was generated with [employer] software. It may contain incorrect words, spelling, and punctuation that were not noted in review of the chart prior to signing ED Disposition - Plan for ED Patient: Disposition: Home or Assisted Living Chief Complaint: Fall Instructions: ED Laceration Facial Sutr Tape Referrals: Chase Rene MD [Primary Care Provider] - Keep Hilario appointment
[2017-10-07 20:35] VITALS: BP 164/88; PULSE 78; RESP 18; O2SAT 95
== END 2017-10-07 20:36 | disposition home or self-care (01) ==
PROVIDERS: Emergency Provider Emergency Medicine; Family Provider Family Medicine; PCP Family Medicine
DX: S01.21XA Laceration without foreign body of nose, initial encounter (principal); W18.39XA Other fall on same level, initial encounter; Y93.01 Activity, walking, marching and hiking; Y92.009 Unspecified place in unspecified non-institutional (private) residence as the place of occurrence of the external cause; I25.10 Atherosclerotic heart disease of native coronary artery without angina pectoris; I10 Essential (primary) hypertension; Z79.82 Long term (current) use of aspirin; Z79.01 Long term (current) use of anticoagulants; Z79.899 Other long term (current) drug therapy; Z87.891 Personal history of nicotine dependence
CPT/HCPCS: 12011; 70450; 90471; 90715; 99285

== ENCOUNTER 2017-10-10 22:28 | Observation (INO) | payer MEDICARE, OTHER, SELFPAY ==
[2017-10-10 22:29] VITALS: BP 148/71; PULSE 101; RESP 22; TEMP 36.9; O2SAT 95; BMI 28.1
--- NOTE | 2017-10-10 22:55 | EKG12_ITS ---
Test Reason : CP Blood Pressure : / mmHG Vent. Rate : 113 BPM Atrial Rate : 113 BPM P-R Int : 144 ms QRS Dur : 130 ms QT Int : 368 ms P-R-T Axes : 026 007 018 degrees QTc Int : 504 ms Sinus tachycardia with occasional PSVCs Low voltage QRS (limb leads) Right bundle branch block Inferior infarct , age undetermined Abnormal ECG Confirmed by CALLUM LAM, KYLIE ([id number]), graphic editor JONN GILLESPIE ([id number]) on 10/13/2017 1:23:27 PM Referred By: REFUGIO Confirmed By:KYLIE NOLEN MD
--- NOTE | 2017-10-10 22:59 | ED.VISSUMM ---
- ER Visit Summary Date of Service: 10/10/17 Chief Complaint: [] Weakness and more tired History of Present Illness: The patient is a 82 M [] patient's been having increased weakness of the last 7 days. He has been feeling more tired tonight. He required assistance from 2 nursing aids at the assisted living at [facility] this evening to help him to the bathroom. Normally he ambulates with a cane and walker. He had a fall 3 days ago and lost his balance. Suffered nasal laceration. CT head was obtained and was negative. Is not on blood thinners. He lost 14 pounds in the last month he has had decreased oral intake. He does not drink much fluids. His daughter thinks he is dehydrated. He was on antibiotics but no longer for broken tooth. She think that that decreases oral intake. He is a history of mild dementia. He denies any current complaints. He saw his doctor as an outpatient today. Physical Examination: [] Vital signs reviewed General: Well-nourished well-developed Head: Normocephalic atraumatic. Old abrasion to his right forehead and nasal bridge old laceration with sutures. No hematoma. Eyes: Pupils equal round and reactive to light extraocular movements intact ENT: TMs clear no hemotympanum no trauma Neck: Nontender full range of motion Cardiovascular: Regular rate rhythm no murmurs normal S1-S2 Respiratory: No distress clear to auscultation bilaterally chest nontender Abdomen: Soft nontender nondistended normal bowel sounds no masses Back: Nontender no CVA tenderness Extremities: Nontender active range of motion ?4 extremities no trauma Skin: Small old abrasion to the right knee. See above Neuro alert pleasantly demented. Answers all questions. Does have good recollection of his past medical history. Test Results: [] Emergency Department Course and Treatment: [] Patient given IV fluids. EKG obtained shows sinus rhythm with a right bundle branch block at a rate of 113. There are beats in a couplet pattern. This couplet pattern went away soon after my evaluation of the EKG. Lab work obtained shows CBC normal. Chemistries normal except potassium 2.5 down from 3.8. Chloride 110. Calcium 6.2. Liver function tests normal except alk phos is 42 AST 10. Troponin negative. Patient given IV fluids. Straight cathetered for urine which showed no urine in the bladder which confirmed his dehydration. Given potassium chloride IV and calcium gluconate IV. Will be admitted for further evaluation and treatment of the above. Treatment Plan: [] Disposition: [] Impression: [] Acute weakness Severe hypokalemia with PACs Hypocalcemia severe Dehydration Recent fall Critical care time 74 minutes This note was generated with [employer] dictation software. It may contain incorrect words, spelling, and punctuation that were not noted in review of the chart prior to signing ED Disposition - Plan for ED Patient: Chief Complaint: Weakness Referrals: Chase Rene MD [Primary Care Provider] -
[2017-10-10 23:52] LABS: Absolute Lymphocyte Count 1.68 X10^3/ul (0.83-4.51); Absolute Neutrophil Count 4.6 X10^3/uL (2.0-7.7); Basophil# 0.02 X10^3/uL; Basophil% 0.3 % (0-1); Eosinophil# 0.21 X10^3/uL; Eosinophils% 2.9 % (0-5); Hematocrit 40.5 % (40-54); Hemoglobin 13.7 g/dl (13.0-16.5); Lymphocyte # 1.68 X10^3/ul (4.0); Lymphocyte % 23.1 % (19-41); Mean Corp Hgb Conc 33.8 g/gl (32-36); Mean Corpuscular Hgb 30.2 pg (27.0-32.0); Mean Corpuscular Volume 89.2 fL (80-94); Monocyte# 0.79 X10^3/uL; Monocyte% 10.9 % (0-10); Neutrophil # 4.57 X10^3/uL (2.7-7.7); Neutrophil % 62.7 % (47-70); Platelet Count 316 K/mm3 (150-450); RBC Distribution Width CV 13.9 % (11.6-14.6); Red Blood Count 4.54 M/mm3 (4.6-6.2); White Blood Count 7.3 K/mm3 (4.4-11.0)
[2017-10-10 23:53] LABS: POSITIVE COUNT NO; POSITIVE DIFFERENTIAL NO; POSITIVE MORPHOLOGY NO
[2017-10-11] VITALS (8 sets, daily range): BP systolic 122–157; BP diastolic 68–90; PULSE 51–102; RESP 16–24; TEMP 37.1–37.3; O2SAT 93–96; BMI 29.7
[2017-10-11 00:05] LABS: AST(SGOT) 9 U/L (15-37); Alanine Aminotransfer ALT/SGPT 10 U/L (16-61); Alkaline Phosphatase 42 U/L (45-117); Bilirubin, Direct 0.17 mg/dL (0.00-0.30); Globulin 3.1 g/dL (2.2-4.2); Protein, Total 5.1 g/dL (6.4-8.2)
[2017-10-11] MEDS: 0.9% Normal Saline 1,000 ML 1000 ML IV (00:35)
[2017-10-11 01:17] LABS: Anion Gap 10 (5-15); BUN 10 mg/dL (7-18); BUN/Creat Ratio 11.7 RATIO (10-20); Calcium,Total 6.2 mg/dL (8.5-10.1); Chloride 110 mmol/L (98-107); Creatinine, Serum 0.85 mg/dL (0.70-1.30); EST Glomerular Filtration Rate 92 mL/min (>60); Est Glom Filt Rate - Afr Amer 111 mL/min (>60); Estimated Creatinine Clearance 76.08 ml/min; Glucose 86 mg/dL (74-106); Potassium 2.5 mmol/L (3.5-5.1); Sodium Level 142 mmol/L (136-145)
--- NOTE | 2017-10-11 01:25 | NURSING ---
LAB CALLED WITH A CRITICAL OF A K OF 2.5 AND CALCIUM OF 6.2
--- NOTE | 2017-10-11 01:55 | PCM.HP.STD ---
Problem List (1) Hypokalemia Status: Acute (2) Hypocalcemia Status: Acute (3) Debility Status: Acute (4) Dementia Status: Chronic (5) Fall Status: Resolved (6) CAD (coronary artery disease) Status: Chronic (7) HTN (hypertension) Status: Chronic (8) HLD (hyperlipidemia) Status: Chronic (9) Alcoholism in remission Status: Chronic (10) Asthma Status: Chronic (11) Depression Status: Chronic (12) Constipation Status: Chronic (13) CKD (chronic kidney disease), stage III Status: Chronic History of Present Illness Date of Admission: 10/11/17 Chief Complaint: generalized weakness The patient is a 82 year old male patient with a past medical history of dementia who resided at [facility] presents to the ER with generalized weakness. He has lost 14 lbs recently and is not eating. Tonight he required to people to transfer him to the rest room and he was more difficult than usual to manage. No chest pain or shortness of breath. He has not urinated here and after bladder scan done he did not have urine in his bladder. He was found to be hypo kalemic and hypocalcemic. He will be admitted overnight for observation and management of his electrolyte disturbance. 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) Asthma (Chronic) Depression (Chronic) Constipation (Chronic) CKD (chronic kidney disease), stage III (Chronic) Allergies fentanyl [From Duragesic] Allergy (Verified 10/10/17 22:50) Unknown Penicillins Allergy (Verified 10/10/17 22:50) Swelling Home Medications: Ambulatory Orders Medication Instructions Recorded Duloxetine Hcl [Cymbalta] 30 mg PO BID 05/31/14 Mirtazapine [Remeron] 7.5 mg PO QHS tablet 09/20/16 Pravastatin [Pravachol] 40 mg PO DAILY@2200 tablet 09/20/16 Senna/Docusate Sodium [Senokot-S] 2 tablet PO DAILY #60 tablet 09/20/16 Clopidogrel Bisulfate [Plavix] 75 mg PO DAILY 10/03/16 Tamsulosin HCl [Flomax] 0.4 mg PO DAILY 10/03/16 Aspirin [Aspirin, Baby] 81 mg PO DAILY@0800 #90 tab.chew 10/06/16 Clonazepam [Klonopin] 0.25 mg PO DAILY 05/14/17 Clonazepam [Klonopin] 0.5 mg PO QHS 05/14/17 Acetaminophen [Tylenol Tablet] 1,000 mg PO BID 10/10/17 Brimonidine Tartrate 0.2% 1 drop EACH EYE BID 10/10/17 [Brimonidine 0.2% 5Ml Bottle] Calcium Carbonate [Emerson-Gest] 200 mg PO Q2H PRN PRN 10/10/17 Nitroglycerin [Nitrostat] 0.4 mg SL PRN PRN 10/10/17 Quetiapine Fumarate [Seroquel] 200 mg PO QHS 10/10/17 Saccharomyces Boulardii [Florastor] 250 mg PO BID 10/10/17 Surgical History: no surgical history Smoking Status: Never smoker - *Family History Maternal History Items: Unknown Paternal History Items: Unknown Review of Systems Constitutional: Reports: Anorexia, Malaise, Weakness, Weight Change, Fatigue. Denies: Chills, Fever HEENT: Denies: Head Aches, Sinus Congestion, Sinus Drainage Cardiovascular: Denies: Chest Pain, Palpitations Respiratory: Denies: Cough, Shortness of breath at rest, Sputum production Gastrointestinal: Denies: Abdominal Pain, Nausea, Vomiting Genitourinary: Denies: Dysuria Musculoskeletal: Denies: Joint Pain, Joint Tenderness Skin: Reports: Dryness. Denies: Rash, Wounds Neurological: Denies: Numbness, Tingling, Focal weakness Psychiatric: Reports: Anxiety. Denies: Depression, Homicidal Ideations, Suicidal Ideations Hematologic/ Lymphatic: Denies: Easy Bruising, Easy Bleeding VTE Information - Inpt Only VTE Present on Admission: No VTE Mechan Device Prophylaxis: None VTE Pharm Prophylaxis ordered?: Yes Patient Problems: Active and Suspected Problems Hypokalemia (Acute) Hypocalcemia (Acute) - Physical Exam General: Alert, Cooperative, Confused, Disoriented HEENT: Atraumatic, PERRLA, EOMI, Normocephalic Neck: Supple Lungs: Clear to auscultation, Normal air movement, No rhonchi, No wheeze, No rales Cardiovascular: Regular rate, Regular Rhythm, Normal S1, Normal S2, No murmurs Abdomen: Bowel Sounds Present, Soft, Non Tender Extremities: No edema Skin: No rashes, No breakdown Musculoskeletal: No Tenderness to Palpation of Joints or Extremities Neurological: Neuro grossly intact, - - told me the year was 1817 Psych/Mental Status: Appropriate, Anxious Vital Signs Temp Pulse Resp BP Pulse Ox 98.4 F 97 24 H 128/83 H 96 10/10/17 22:29 10/11/17 01:52 10/11/17 01:52 10/11/17 01:52 10/11/17 01:52 Oxygen Delivery Method Room Air Weight: 207 lb 7.28 oz Body Mass Index (BMI) 28.1 Finger Stick Blood Glucose 103 Laboratory Tests Past 24 Hrs 10/10/17 10/10/17 10/10/17 23:15 23:15 23:40 WBC Cancelled 7.3 Corrected WBC Cancelled RBC Cancelled 4.54 L Hgb Cancelled 13.7 Hct Cancelled 40.5 MCV Cancelled 89.2 MCH Cancelled 30.2 MCHC Cancelled 33.8 RDW Cancelled 13.9 RDW Differential Cancelled 45.0 H Plt Count Cancelled 316 MPV Cancelled 9.0 Immature Gran % (Auto) Cancelled 0.100 Neut % (Auto) Cancelled 62.7 Lymph % (Auto) Cancelled 23.1 [place] % (Auto) Cancelled 10.9 H Eos % (Auto) Cancelled 2.9 Baso % (Auto) Cancelled 0.3 Immature Gran # (Auto) Cancelled Absolute Neuts (auto) Cancelled 4.6 Absolute Lymphs (auto) Cancelled 1.68 Absolute Monos (auto) Cancelled Total Counted Cancelled Not Reportable Neutrophils % (Manual) Cancelled Band Neutrophils % Cancelled Lymphocytes % (Manual) Cancelled Monocytes % (Manual) Cancelled Eosinophils % (Manual) Cancelled Basophils % (Manual) Cancelled Metamyelocytes % Cancelled Myelocytes % Cancelled Promyelocytes % Cancelled Blast Cells % Cancelled Plasma Cell % (Manual) Cancelled Other Cells % Cancelled Lymphocytes # Cancelled Nucleated RBCs/100 WBC Cancelled Differential Comment Cancelled Diff Path Review Cancelled Hypersegmented Neuts Cancelled Atypical Lymphocytes Cancelled Reactive Lymphocytes Cancelled Smudge Cells Cancelled Eosinophilia # Cancelled Basophilia # Cancelled Toxic Granulation Cancelled Dohle Bodies Cancelled Noelle Rods Cancelled Platelet Estimate Cancelled Plt Morphology Comment Cancelled RBC Morphology Cancelled Polychromasia Cancelled Hypochromasia Cancelled Poikilocytosis Cancelled Basophilic Stippling Cancelled Anisocytosis Cancelled Microcytosis Cancelled Macrocytosis Cancelled Spherocytes Cancelled Sickle Cells Cancelled Target Cells Cancelled Tear Drop Cells Cancelled Ovalocytes Cancelled Stomatocytes Cancelled [place] Bodies Cancelled Cache Cells Cancelled Bite Cells Cancelled Acanthocytes (Spur) Cancelled Rouleaux Cancelled Schistocytes Cancelled Sodium Potassium Chloride Carbon Dioxide Anion Gap BUN Creatinine Estim Creat Clear Calc Est GFR (MDRD) Af Amer Est GFR (MDRD) Non-Af BUN/Creatinine Ratio Glucose Calcium Total Bilirubin Cancelled Direct Bilirubin Cancelled AST Cancelled ALT Cancelled Alkaline Phosphatase Cancelled Troponin I Cancelled Total Protein Cancelled Albumin Cancelled Globulin Cancelled 10/10/17 23:40 WBC Corrected WBC RBC Hgb Hct MCV MCH MCHC RDW RDW Differential Plt Count MPV Immature Gran % (Auto) Neut % (Auto) Lymph % (Auto) [place] % (Auto) Eos % (Auto) Baso % (Auto) Immature Gran # (Auto) Absolute Neuts (auto) Absolute Lymphs (auto) Absolute Monos (auto) Total Counted Neutrophils % (Manual) Band Neutrophils % Lymphocytes % (Manual) Monocytes % (Manual) Eosinophils % (Manual) Basophils % (Manual) Metamyelocytes % Myelocytes % Promyelocytes % Blast Cells % Plasma Cell % (Manual) Other Cells % Lymphocytes # Nucleated RBCs/100 WBC Differential Comment Diff Path Review Hypersegmented Neuts Atypical Lymphocytes Reactive Lymphocytes Smudge Cells Eosinophilia # Basophilia # Toxic Granulation Dohle Bodies Noelle Rods Platelet Estimate Plt Morphology Comment RBC Morphology Polychromasia Hypochromasia Poikilocytosis Basophilic Stippling Anisocytosis Microcytosis Macrocytosis Spherocytes Sickle Cells Target Cells Tear Drop Cells Ovalocytes Stomatocytes [place] Bodies Cache Cells Bite Cells Acanthocytes (Spur) Rouleaux Schistocytes Sodium 142 Potassium 2.5 L* Chloride 110 H Carbon Dioxide 22.0 Anion Gap 10 BUN 10 Creatinine 0.85 Estim Creat Clear Calc 76.08 Est GFR (MDRD) Af Amer 111 Est GFR (MDRD) Non-Af 92 BUN/Creatinine Ratio 11.7 Glucose 86 Calcium 6.2 L* Total Bilirubin 0.40 Direct Bilirubin 0.17 AST 9 L ALT 10 L Alkaline Phosphatase 42 L Troponin I < 0.015 Total Protein 5.1 L Albumin 2.0 L Globulin 3.1 Assessment/Plan All Active Problems Chest pain (Acute) Hypokalemia (Acute) Hypocalcemia (Acute) Closed head injury (Resolved) Debility (Acute) Fall (Resolved) Chronic Problems CAD (coronary artery disease) (Chronic) HTN (hypertension) (Chronic) HLD (hyperlipidemia) (Chronic) 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
--- NOTE | 2017-10-11 03:08 | NURSING ---
Called ED hammer smithBettina WANG at this time to confirm Pt is okay to come to PCU.
[2017-10-11 03:28] LABS: Mucous, Urine 0 SEEN /hpf (<or=2+); Red Blood Cells-Urine 0 SEEN /hpf (0-5)
[2017-10-11 03:39] LABS: Color, Urine Yellow (Yellow); Glucose, Dipstick Normal (Normal); Ketone-Dipstick Negative (Negative); Leukocyte Esterase-Dipstick 25 /ul (Negative); Nitrite-Dipstick Negative (Negative); Occult Blood-Urine Negative /ul (Negative); Protein-Dipstick Negative (Negative); Specific Gravity, Urine 1.015 (1.002-1.030); Urine Bilirubin Dipstick Negative (Negative); Urine Clarity Clear (Clear); Urine Urobilinogen Normal (Normal)
[2017-10-11 03:45] LABS: Bacteria RARE /hpf (None Seen); Squamous Epithelial Cells - UA 0-5 SEEN /hpf (0-5); White Blood Cells 0-5 SEEN /hpf (0-5)
[2017-10-11 06:17] LABS: Hematocrit 43.6 % (40-54); Hemoglobin 14.5 g/dl (13.0-16.5); Mean Corp Hgb Conc 33.3 g/gl (32-36); Mean Corpuscular Hgb 29.8 pg (27.0-32.0); Mean Corpuscular Volume 89.5 fL (80-94); Mean Platelet Vol. 9.3 fl (6.2-12.0); Platelet Count 314 K/mm3 (150-450); RBC Distribution Width CV 13.9 % (11.6-14.6); RBC Distribution Width SD 45.5 fl (35.1-43.9); Red Blood Count 4.87 M/mm3 (4.6-6.2); White Blood Count 6.8 K/mm3 (4.4-11.0)
[2017-10-11 06:25] LABS: Scan Indicated on CBC? Y/N NO
[2017-10-11 06:32] LABS: Anion Gap 10 (5-15); BUN 10 mg/dL (7-18); BUN/Creat Ratio 9.1 RATIO (10-20); Calcium,Total 7.5 mg/dL (8.5-10.1); Chloride 105 mmol/L (98-107); EST Glomerular Filtration Rate 68 mL/min (>60); Est Glom Filt Rate - Afr Amer 83 mL/min (>60); Glucose 95 mg/dL (74-106); Potassium 3.4 mmol/L (3.5-5.1); Prealbumin 10.8 mg/dL (20.0-40.0); Sodium Level 140 mmol/L (136-145)
--- NOTE | 2017-10-11 10:17 | CASEMGMT ---
AMBER spoke with Rosina at [facility]. She did not think there would be any problem with taking patient back. She said he typically is a stand-by to a 1 assist and his balance is always terrible. AMBER told her will see how he does with therapy and let her know. SW also let her know patient may be ready to be d/c today. AMBER also spoke with patient's son in law and he is aware patient may be d/c today. He could transport him, but he does have to be somewhere later on this afternoon. Plan: return to [facility] pending PT/OT evaluations Jennie DUENAS BLANKER OPERATOR
--- NOTE | 2017-10-11 10:26 | CASEMGMT ---
RN CM Note. Intro role of CM to pt's son in law. He had concerns re: pt being Observation status. Discussed MCR guidelines and physician plans to discharge pt today to return to Assisted Living. Son voiced understanding. Bernardino MACIEL RN ACM
[2017-10-11] MEDS: Clopidogrel Bisulfate 75 MG Tablet PO (11:01)
[2017-10-11] MEDS: Senna/Docusate Sodium 1 Tablet 2 TABLET PO (11:01)
[2017-10-11] MEDS: Acetaminophen 500 MG Tablet 1000 MG PO (11:01)
[2017-10-11] MEDS: DULoxetine Hcl 30 MG Capsule PO (11:03)
[2017-10-11] MEDS: Aspirin 81 MG TAB.CHEW PO (11:03)
[2017-10-11] MEDS: Tamsulosin HCl 0.4 MG Capsule PO (11:03)
[2017-10-11] MEDS: clonazePAM 0.5 MG Tablet 0.25 MG PO (11:40)
--- NOTE | 2017-10-11 12:15 | PCM.DC ---
- Discharge Diagnoses Current Active Problems: Current Active and Chronic Problems Hypokalemia (Acute) Hypocalcemia (Acute) You will use the following diet at home:: No restrictions Discharge Activity: Return to Normal Activity Call your doctor if you observe: Shortness of breath, Dizziness, Fainting spells, Chest pain Allergies/Adverse Reactions: Allergies fentanyl [From Duragesic] Allergy (Verified 10/10/17 22:50) Unknown Penicillins Allergy (Verified 10/10/17 22:50) Swelling Medications to take at Discharge Duloxetine Hcl [Cymbalta] 30 mg PO BID 05/31/14 Mirtazapine [Remeron] 7.5 mg PO QHS tablet 09/20/16 Pravastatin [Pravachol] 40 mg PO DAILY@2200 tablet 09/20/16 Senna/Docusate Sodium [Senokot-S] 2 tablet PO DAILY #60 tablet 09/20/16 Clopidogrel Bisulfate [Plavix] 75 mg PO DAILY 10/03/16 Tamsulosin HCl [Flomax] 0.4 mg PO DAILY 10/03/16 Aspirin [Aspirin, Baby] 81 mg PO DAILY@0800 #90 tab.chew 10/06/16 Clonazepam [Klonopin] 0.25 mg PO DAILY 05/14/17 Clonazepam [Klonopin] 0.5 mg PO QHS 05/14/17 Acetaminophen [Tylenol Tablet] 1,000 mg PO BID 10/10/17 Brimonidine Tartrate 0.2% [Brimonidine 0.2% 5Ml Bottle] 1 drop EACH EYE BID 10/10/17 Calcium Carbonate [Emerson-Gest] 200 mg PO Q2H PRN PRN 10/10/17 Nitroglycerin [Nitrostat] 0.4 mg SL PRN PRN 10/10/17 Quetiapine Fumarate [Seroquel] 200 mg PO QHS 10/10/17 Saccharomyces Boulardii [Florastor] 250 mg PO BID 10/10/17 Clonazepam [Klonopin] 0.25 mg PO DAILY PRN PRN 10/11/17 Primary Care Physician: Chase Rene MD [Primary Care Provider] - Please follow up with your Primary Care Physician in: 1 Week Test Results: Test results from this visit will be discussed in further detail at your follow-up appointment, if applicable. Proposed Discharge Date: 10/11/17
--- NOTE | 2017-10-11 12:18 | PCM.DC.SUM ---
<Paula Anaya - Last Filed: 10/11/17 12:37> Discharge Date and Diagnosis Date of Admission: 10/11/17 Date of Discharge: 10/11/17 - Primary Discharge Diagnosis Active and Suspected Problems 1. Hypokalemia (Acute) 2. Hypocalcemia (Acute) 3. 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 Patient was noted to have hypokalemia and hypocalcemia. Patient received IV calcium gluconate and oral potassium. Patient has chronic hypocalcemia. Stable at discharge. Patient's past medical history includes dementia, CAD, hypertension, hyperlipidemia, asthma, depression, chronic kidney disease stage III. Chronic medical conditions stable at this time. Physical therapy evaluated patient and he was a modified independent with walking and transfers. Recommend continued use of walker. Further PT/OT at assisted living facility. Patient stable for return to assisted living facility. General: Alert, Cooperative, Confused, Disoriented HEENT: Atraumatic, PERRLA, EOMI, Normocephalic Neck: Supple Lungs: Clear to auscultation, Normal air movement, No rhonchi, No wheeze, No rales Cardiovascular: Regular rate, Regular Rhythm, Normal S1, Normal S2, No murmurs Abdomen: Bowel Sounds Present, Soft, Non Tender Extremities: No edema Skin: No rashes, No breakdown Musculoskeletal: No Tenderness to Palpation of Joints or Extremities Neurological: Neuro grossly intact Psych/Mental Status: Appropriate, Anxious Patient seen exam prior to discharge. Physical assessment as above. Patient stable for discharge to assisted living facility with follow-up with primary care physician in 1 week. This patient was seen by DALTON Petit under the supervision of Dr. Mendenhall. Discharge Diet: No Restrictions Discharge Activity: Return to Normal Activity Call your doctor if you observe: Shortness of breath, Dizziness, Fainting spells, Chest pain Home Medications: Medications to take at Discharge Duloxetine Hcl [Cymbalta] 30 mg PO BID 05/31/14 Mirtazapine [Remeron] 7.5 mg PO QHS tablet 09/20/16 Pravastatin [Pravachol] 40 mg PO DAILY@2200 tablet 09/20/16 Senna/Docusate Sodium [Senokot-S] 2 tablet PO DAILY #60 tablet 09/20/16 Clopidogrel Bisulfate [Plavix] 75 mg PO DAILY 10/03/16 Tamsulosin HCl [Flomax] 0.4 mg PO DAILY 10/03/16 Aspirin [Aspirin, Baby] 81 mg PO DAILY@0800 #90 tab.chew 10/06/16 Clonazepam [Klonopin] 0.25 mg PO DAILY 05/14/17 Clonazepam [Klonopin] 0.5 mg PO QHS 05/14/17 Acetaminophen [Tylenol Tablet] 1,000 mg PO BID 10/10/17 Brimonidine Tartrate 0.2% [Brimonidine 0.2% 5Ml Bottle] 1 drop EACH EYE BID 10/10/17 Calcium Carbonate [Emerson-Gest] 200 mg PO Q2H PRN PRN 10/10/17 Nitroglycerin [Nitrostat] 0.4 mg SL PRN PRN 10/10/17 Quetiapine Fumarate [Seroquel] 200 mg PO QHS 10/10/17 Saccharomyces Boulardii [Florastor] 250 mg PO BID 10/10/17 Clonazepam [Klonopin] 0.25 mg PO DAILY PRN PRN 10/11/17 Primary Care Physician: Chase Rene MD [Primary Care Provider] - Please follow up with your Primary Care Physician in: 1 Week Disposition: Asstd Living/Non-Skill HI Minutes spent on discharge:: 35 Patient Condition:: Stable Medical Necessity - Tobacco Use Smoking Status: Former smoker Meaningful Use Info Meaningful Use Diagnoses (Choose all that apply): None applicable <Chase Mendenhall - Last Filed: 10/12/17 07:12> Discharge Date and Diagnosis - Secondary Discharge Diagnosis Chronic Problems Dementia (Chronic) CAD (coronary artery disease) (Chronic) HTN (hypertension) (Chronic) HLD (hyperlipidemia) (Chronic) 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 Data reviewed. I agree with the above note by the nurse practitioner. The patient is a 82 year old M presents with weakness from assisted living. Patient was found to be hypokalemic as well as hypocalcemic. Patient's hypocalcemia could be corrected to the normal to near normal range with correction for his albumin. Patient did receive potassium replacements. Patient did not require any further medical necessity for hospitalization and patient was discharged back to his assisted living [] Discharge Diet: No Restrictions Discharge Activity: Return to Normal Activity Call your doctor if you observe: Shortness of breath, Dizziness, Fainting spells, Chest pain Disposition: Asstd Living/Non-Skill HI Patient Condition:: Stable Meaningful Use Info Meaningful Use Diagnoses (Choose all that apply): None applicable Code Visit OBSV E&M: 90102 Observation care discharge
--- NOTE | 2017-10-11 13:40 | CASEMGMT ---
AMBER faxed orders to [place]. 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 Await return call. Jennie BROWN
--- NOTE | 2017-10-11 15:05 | CASEMGMT ---
SW 's daughter called and she said she would be in a little after 3:30 to cigar packer and picker patient. SW notified RN, patient, nurse discharge, secretary book keeper, and patient's RN at [place]. Plan: d/c back to [facility]. Family transported. Jennie DUENAS MSW
== END 2017-10-11 12:16 | disposition home or self-care (01) ==
LOC: ED 23:16 → PCU 10-11 02:47
PROVIDERS: Admitting Provider Family Medicine; Emergency Provider Emergency Medicine; Family Provider Family Medicine; PCP Family Medicine
DX: E87.6 Hypokalemia (principal); R53.1 Weakness; E83.51 Hypocalcemia; I25.10 Atherosclerotic heart disease of native coronary artery without angina pectoris; E78.5 Hyperlipidemia, unspecified; J45.909 Unspecified asthma, uncomplicated; F03.90 Unspecified dementia, unspecified severity, without behavioral disturbance, psychotic disturbance, mood disturbance, and anxiety; I12.9 Hypertensive chronic kidney disease with stage 1 through stage 4 chronic kidney disease, or unspecified chronic kidney disease; N18.3 Chronic kidney disease, stage 3 (moderate); F10.21 Alcohol dependence, in remission; F32.9 Major depressive disorder, single episode, unspecified; E86.0 Dehydration; K59.09 Other constipation; I25.2 Old myocardial infarction; Z87.891 Personal history of nicotine dependence; Z79.899 Other long term (current) drug therapy; Z79.02 Long term (current) use of antithrombotics/antiplatelets; S01.21XD Laceration without foreign body of nose, subsequent encounter; W19.XXXD Unspecified fall, subsequent encounter
CPT/HCPCS: 36415; 80048; 80076; 81001; 84134; 84484; 85025; 85027; 93005; 96360; 96361; 97162; 97165; 97802; 99218; 99285; J7030; J7040; A4216; G0378; J0610

== ENCOUNTER → 2017-10-13 05:00 | Outpatient (REF) | payer MEDICARE, OTHER, SELFPAY ==
[2017-10-13 08:54] LABS: Anion Gap 9 (5-15); BUN 11 mg/dL (7-18); BUN/Creat Ratio 8.3 RATIO (10-20); Calcium,Total 8.4 mg/dL (8.5-10.1); Chloride 100 mmol/L (98-107); Creatinine, Serum 1.33 mg/dL (0.70-1.30); EST Glomerular Filtration Rate 55 mL/min (>60); Est Glom Filt Rate - Afr Amer 66 mL/min (>60); Glucose 97 mg/dL (74-106); Potassium 4.1 mmol/L (3.5-5.1); Sodium Level 137 mmol/L (136-145)
== END ==
LOC: OLS.DANBUR 05:00
PROVIDERS: Visit Provider Family Medicine
DX: N40.0 Benign prostatic hyperplasia without lower urinary tract symptoms (principal); F03.90 Unspecified dementia, unspecified severity, without behavioral disturbance, psychotic disturbance, mood disturbance, and anxiety; E78.5 Hyperlipidemia, unspecified; E03.9 Hypothyroidism, unspecified; I12.9 Hypertensive chronic kidney disease with stage 1 through stage 4 chronic kidney disease, or unspecified chronic kidney disease; N18.3 Chronic kidney disease, stage 3 (moderate)
CPT/HCPCS: 36415; 80048

== ENCOUNTER → 2017-10-19 13:05 | Outpatient (CLI) | payer MEDICARE, OTHER, SELFPAY ==
--- NOTE | 2017-10-19 13:24 | CDUL_ITS ---
Reason For Study: Carotid stenosis - right side only ordered Rt. Velocities/BP Prox CCA 80.9/14.1 cm/sec. Mid CCA 69.8/14.1 cm/sec. Dist CCA 69.2/14.7 cm/sec. Prox ICA 156.0/48.1 cm/sec. Mid ICA 112.0/31.4 cm/sec. Dist ICA 93.2/24.6 cm/sec. Rt. ICA/CCA = 2.2. Prox ECA 85.6/10.0 cm/sec. Rt. Vert. 36.4/8.2 cm/sec. Right Extracranial There is intimal thickening but no significant atherosclerotic plaque noted in the right common carotid artery. There is heterogeneous, irregular atherosclerotic plaque noted in the right internal carotid artery. There is no significant atherosclerotic plaque noted in the right external carotid artery. Antegrade flow is noted in the right vertebral artery. Procedure Carotid Duplex [id number]. Exam performed in department. Interpretation Summary Moderate (50-69%) stenosis right extracranial internal carotid. Flow within the right verterbral artery is antegrade. Ordering Physician: Chase Rene Referring Physician: Zeeshan Vickers Performed By: Juana Yusuf RVT
== END ==
PROVIDERS: Family Provider Family Medicine; PCP Family Medicine; Visit Provider Family Medicine
DX: I65.21 Occlusion and stenosis of right carotid artery (principal)
CPT/HCPCS: 93882

== ENCOUNTER → 2017-10-19 17:17 | Outpatient (CLI) | payer MEDICARE, OTHER, SELFPAY ==
--- NOTE | 2017-10-19 17:22 | RAD_ITS ---
STUDY: X-RAY CHEST REASON FOR EXAM: Male, 82 years old. Chest pain TECHNIQUE: Frontal view of the chest COMPARISON: CT dated 05/15/2017. FINDINGS: There is a 9.0 x 7.3 cm right upper lobe opacity. The CT dated 05/15/2017 demonstrated a 1.1 x 0.9 cm opacity in this region. The lungs are otherwise clear. There is a small right pleural effusion. There is no left-sided effusion. There is no pneumothorax. The heart is normal in size. The patient is status post sternotomy. RAD/Chest PA and Lateral IMPRESSION: 9.0 x 7.3 cm opacity in the right upper lobe which is significantly increased in size when compared with the CT dated 05/15/2017. This may be due to neoplasm or infection. Further evaluation with CT is recommended. Electronically Signed: John Zapien, at 18:01 EDT Tel , Service support ,
--- NOTE | 2017-10-19 17:22 | RAD_ITS ---
STUDY: X-RAY - ABDOMEN/PELVIS REASON FOR EXAM: Male, 82 years old. Abdominal pain and distention TECHNIQUE: 4P views COMPARISON: None. FINDINGS: Normal visualized lung bases. There is an unremarkable bowel gas pattern. There is no demonstrated free abdominal air. The visualized liver, spleen and kidneys are grossly normal in size and morphology. Normal soft tissue structures. Extensive degenerative bony changes with a rotatory scoliosis. RAD/Abd Inc Decub and/or Erect IMPRESSION: No acute findings Electronically Signed: Fabrice Grigsby MD at 9:12 EDT , Service support ,
== END ==
PROVIDERS: Family Provider Family Medicine; PCP Family Medicine; Visit Provider Family Medicine
DX: R09.89 Other specified symptoms and signs involving the circulatory and respiratory systems (principal); K59.00 Constipation, unspecified
CPT/HCPCS: 71046; 74019; 93882

== ENCOUNTER → 2017-10-20 05:00 | Outpatient (REF) | payer MEDICARE, OTHER, SELFPAY ==
[2017-10-20 08:15] LABS: Absolute Lymphocyte Count 1.83 X10^3/ul (0.83-4.51); Absolute Neutrophil Count 5.5 X10^3/uL (2.0-7.7); Basophil# 0.02 X10^3/uL; Basophil% 0.2 % (0-1); Eosinophil# 0.26 X10^3/uL; Eosinophils% 3.1 % (0-5); Hematocrit 45.2 % (40-54); Hemoglobin 14.9 g/dl (13.0-16.5); Lymphocyte # 1.83 X10^3/ul (4.0); Lymphocyte % 21.6 % (19-41); Mean Corpuscular Hgb 29.7 pg (27.0-32.0); Mean Platelet Vol. 9.4 fl (6.2-12.0); Monocyte# 0.85 X10^3/uL; Neutrophil # 5.49 X10^3/uL (2.7-7.7); Neutrophil % 64.9 % (47-70); Platelet Count 392 K/mm3 (150-450); RBC Distribution Width CV 14.2 % (11.6-14.6); RBC Distribution Width SD 46.8 fl (35.1-43.9); Red Blood Count 5.02 M/mm3 (4.6-6.2); White Blood Count 8.5 K/mm3 (4.4-11.0)
[2017-10-20 08:17] LABS: POSITIVE COUNT NO; POSITIVE DIFFERENTIAL NO; POSITIVE MORPHOLOGY NO
[2017-10-20 08:51] LABS: ALB/GLOB Ratio 0.6 RATIO (0.9-2.4); AST(SGOT) 15 U/L (15-37); Alanine Aminotransfer ALT/SGPT 21 U/L (16-61); Albumin, Serum 2.6 g/dL (3.2-5.0); Alkaline Phosphatase 57 U/L (45-117); Anion Gap 9 (5-15); BUN 16 mg/dL (7-18); BUN/Creat Ratio 12.5 RATIO (10-20); Calcium,Total 8.6 mg/dL (8.5-10.1); Chloride 101 mmol/L (98-107); Creatinine, Serum 1.28 mg/dL (0.70-1.30); EST Glomerular Filtration Rate 57 mL/min (>60); Est Glom Filt Rate - Afr Amer 69 mL/min (>60); Globulin 4.3 g/dL (2.2-4.2); Glucose 110 mg/dL (74-106); Magnesium 2.3 mg/dL (1.6-2.6); Potassium 4.1 mmol/L (3.5-5.1); Protein, Total 6.9 g/dL (6.4-8.2); Sodium Level 140 mmol/L (136-145); Thyroid Stim Hormone (TSH) 2.59 uIU/mL (0.358-3.74)
== END ==
LOC: OLS.DANBUR 05:00
PROVIDERS: Visit Provider Family Medicine
DX: R53.83 Other fatigue (principal); R53.81 Other malaise; E83.51 Hypocalcemia
CPT/HCPCS: 36415; 80053; 83735; 84443; 85025

== ENCOUNTER → 2017-10-20 09:37 | Outpatient (CLI) | payer MEDICARE, OTHER, SELFPAY ==
--- NOTE | 2017-10-20 10:03 | CT_ITS ---
STUDY: CT CHEST WITHOUT CONTRAST REASON FOR EXAM: Male, 82 years old. Right lung mass, shortness of breath RADIATION DOSAGE (If Supplied By Facility): CTDIvol = ( 19.62 ) mGy, DLP = ( 658.19 ) mGycm TECHNIQUE: Transaxial imaging was performed without the administration of intravenous contrast material. Multiplanar coronal and sagittal images were reformatted. Individualized dose optimization techniques were used for this CT. COMPARISON: 05/15/17 FINDINGS: The previous study showed a small 1.8 x 1.7 cm nodular density in the right upper lobe. There is now a large pleural-based mass measuring approximately 6.7 x 9.2 x 10.9 cm. There are associated satellite lesions, an acute inflammation. There is a large free-flowing pleural effusion in the right lung base which has mixed density suggesting there may be some proteinaceous debris within it. The left lung is free of a superimposed acute process. Soft tissue windows show normal-appearing thyroid gland. There are scattered subcentimeter axillary mediastinal lymph nodes. 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 Limited cuts through the upper abdomen show fatty infiltration of the liver, bony structures show extensive degenerative changes CT/Chest without Contrast IMPRESSION: Development of a large wedge-shaped pleural-based mass in the right upper lobe measuring 6.7 x 9.2 x 10.9 cm. This should be considered a malignant process until proven otherwise There are associated satellite lesions, as well as opacifications in the right lung likely atelectasis or postobstructive infiltrates and a free-flowing large right pleural effusion with mixed density as it may contain some proteinaceous debris Remote CABG No suspicious axillary or mediastinal lymphadenopathy. There are scattered subcentimeter mediastinal lymph nodes. Fatty liver Degenerative bony changes Electronically Signed: Fabrice Grigsby MD at 11:12 EDT , Service support ,
== END ==
PROVIDERS: Family Provider Family Medicine; PCP Family Medicine; Visit Provider Family Medicine
DX: R91.8 Other nonspecific abnormal finding of lung field (principal); R53.83 Other fatigue; R53.81 Other malaise; E83.51 Hypocalcemia
CPT/HCPCS: 36415; 71250; 80053; 83735; 84443; 85025

== ENCOUNTER → 2017-10-21 11:00 | Outpatient (REF) | payer MEDICARE, OTHER, SELFPAY ==
[2017-10-21 11:43] LABS: International Normalized Ratio 1.2
[2017-10-21 11:45] LABS: Partial Thromboplast Time 36.9 Seconds (24.1-36.2)
== END ==
LOC: OLS.DANBUR 11:00
PROVIDERS: Visit Provider Family Medicine
DX: R69 Illness, unspecified (principal)
CPT/HCPCS: 36415; 85610; 85730

== ENCOUNTER → 2017-10-23 11:00 | Outpatient (REF) | payer MEDICARE, OTHER, SELFPAY ==
[2017-10-23 11:46] LABS: Prothrombin Time Fingerstick 17.3 SEC (11.9-14.4)
== END ==
LOC: OLS.DANBUR 11:00
PROVIDERS: Visit Provider Family Medicine
DX: Z01.812 Encounter for preprocedural laboratory examination (principal); I48.91 Unspecified atrial fibrillation; Z79.01 Long term (current) use of anticoagulants
CPT/HCPCS: 36416; 85610

== ENCOUNTER → 2017-10-24 10:44 | Outpatient (CLI) | payer MEDICARE, OTHER, SELFPAY ==
--- NOTE | 2017-10-24 | FLU_PTH ---
PATIENT: David Stover LOC: [facility]#:[id number] AGE/SX: 89/M ROOM: RE10/24/[address]: Dr. Chase Rene MD : 1935 BED: DIS: SPEC #: [id number] RECD: 10/24/17 12:40 STATUS: COURTNEY SREE #: [id number] LUC: 10/24/17 00:[address]: Chase Rene DEPT: CYTOLOGY RECD BY: Silas Tidwell Tissues: THORACIC FLUID Procedures: Pap Stain (control) Special Stain Group II Surgery Specimen Level IV Cell Block Cytospin Fluid HEADER OPERATION: Ultrasound-guided right thoracentesis PRE-OP DIAGNOSIS: Pleural effusion TISSUE SUBMITTED: Thoracentesis fluid for cytology DIAGNOSIS CYTOLOGY Thoracentesis fluid for cytology (cytospin and cell block): Negative for malignant cells. See cytology study and comment. SJ:jamin 10/25/17 COMMENT Clinical correlation and appropriate follow up are necessary. CYTOLOGY STUDY Slides are reviewed. The specimen consists of macrophages, mesothelial cells and inflammatory cells. CYTOLOGY GROSS Received is 130 ml of cloudy mallorie fluid labeled with the patient's name and and designated per the requisition as thoracentesis. Submitted for cytology preparation including cell block. 10/24/17 TC: CPT: 05675, [id number]
--- NOTE | 2017-10-24 10:48 | US_ITS ---
PROCEDURE: ULTRASOUND GUIDED THORACENTESIS - CLINICAL HISTORY: Male, 82 years old. Right pleural effusion CONSENT: The risks, benefits and alternatives to the procedure were explained to the patient, and the patient agreed to the procedure and signed the consent. STERILE BARRIER TECHNIQUE: The following sterile barrier precautions were used during the procedure: hand hygiene; use of 2% chlorhexidine aseptic; use of a cap, mask, sterile gown, sterile gloves, sterile full body drape, and a large sterile sheet. SEDATION: Local anesthesia TECHNIQUE: Under the ultrasound guidance using all elements of maximum sterile technique and after infiltration of the skin and subcutaneous soft tissues with 10 mL of lidocaine 1% a 5 Uzbek drainage catheter is introduced in the lower part of the hemithorax. 1400 mL of fluid were removed sample sent to lab for evaluation. The patient tolerated the procedure there was no immediate complication. US/Thoracentesis W US IMPRESSION: Successful ultrasound-guided thoracentesis. Electronically Signed: Caesar Lucia MD at 18:26 EDT Tel , Service support ,
--- NOTE | 2017-10-24 12:22 | RAD_ITS ---
STUDY: X-RAY CHEST REASON FOR EXAM: Male, 82 years old. Post thoracentesis TECHNIQUE: Single frontal view of the chest. Expiration view. COMPARISON: None. FINDINGS: There is right lung upper lobe mass. There is no evidence of pneumothorax. There is no demonstrated pleural abnormality. Normal size heart. Normal mediastinum and kya. Normal visualized pulmonary arteries. Normal visualized aortic arch and descending thoracic aorta. Normal visualized thoracic spine. Normal visualized ribs, clavicles, and shoulders. There is no demonstrated abnormality of the visualized soft tissue structures of the upper abdomen. RAD/Chest 1 View IMPRESSION: There is stable right lung upper lobe mass. There is no evidence of pneumothorax. Electronically Signed: Caesar Lucia MD at 12:39 EDT Tel , Service support ,
--- NOTE | 2017-10-24 12:23 | RAD_ITS ---
STUDY: X-RAY CHEST REASON FOR EXAM: Male, 82 years old. POST RIGHT THORACENTESIS, INSPIRATION TECHNIQUE: Single AP portable view of the chest. Inspiration view. COMPARISON: None. FINDINGS: There is right lung upper lobe mass. There is no evidence of pneumothorax. There is no demonstrated pleural abnormality. Normal size heart. Normal mediastinum and kya. Normal visualized pulmonary arteries. Normal visualized aortic arch and descending thoracic aorta. Normal visualized thoracic spine. Normal visualized ribs, clavicles, and shoulders. There is no demonstrated abnormality of the visualized soft tissue structures of the upper abdomen. RAD/Chest 1 View IMPRESSION: There is stable right lung upper lobe mass. There is no evidence of pneumothorax. Electronically Signed: Caesar Lucia MD at 12:40 EDT Tel , Service support ,
[2017-10-24 13:31] LABS: Cytology, Body Fluid / CSF SEE PATHOLOGY REPORT
[2017-10-24 14:00] LABS: Body Fluid Mononuclear WBC # 0.696 10^3/uL; Body Fluid Mononuclear WBC % 83.9 %; Body Fluid Polynuclear WBC # 0.134 10^3/uL; Body Fluid Polynuclear WBC % 16.1 %; Body Fluid Total Cells Counted 0.842 10^3/ul
[2017-10-24 14:11] LABS: Appearance/Body Fluid SL CLDY; Auto B Fluid Analyzer BKGD Ct COUNTS W/IN LIMITS (W/IN LIMITS); Color/Body Fluid YELLOW; Source- Body Fluid THORACENTESIS
[2017-10-24 14:13] LABS: Glucose, Body Fluid 112 mg/dL (40-70); LDH,Body Fluid 252 Units/l (Not Establ.); Protein, Body Fluid 4.4 g/dL (Not Establ.)
[2017-10-24 14:55] LABS: Body Fluid QC Type(s) BF1Q; Lymphocytes 69 %; Mesothelial Cells 2 %; Monocytes 14 %; Neutrophil (Segs) 15 %
[2017-10-25 16:26] LABS: Pathologist Comment/Body Fluid Reviewed
== END ==
PROVIDERS: Family Provider Family Medicine; PCP Family Medicine; Visit Provider Family Medicine
DX: J90 Pleural effusion, not elsewhere classified (principal)
CPT/HCPCS: 32555; 71045; 82945; 83615; 84157; 87070; 87075; 87205; 88108; 88305; 88313; 89050

== ENCOUNTER 2017-11-04 21:37 | Emergency (ER) | payer MEDICARE, OTHER, SELFPAY ==
[2017-11-04 21:38] VITALS: BP 130/81; PULSE 111; PULSE 112; RESP 21; RESP 24; TEMP 36.8; O2SAT 93; O2SAT 94; BMI 28.0
--- NOTE | 2017-11-04 22:21 | RAD_ITS ---
STUDY: X-RAY - LEFT KNEE REASON FOR EXAM: Male, 82 years old. Trauma TECHNIQUE: 2 view(s) of the knee. COMPARISON: None. FINDINGS: Normal visualized distal femur. Normal visualized proximal tibia and fibula. Normal proximal tibiofibular articulation. There is mild degenerative arthrosis of the medial femorotibial compartment. There is mild degenerative arthrosis of the lateral femorotibial compartment. There is mild degenerative arthrosis of the patellofemoral articulation. The soft tissue structures are unremarkable. RAD/Knee 1 or 2 Views IMPRESSION: Degenerative arthrosis. There is no evidence of fracture, dislocation, free intra-articular calcifications, or suprapatellar effusion. Electronically Signed: Kyle Rincon MD at 23:02 EDT , Service support ,
--- NOTE | 2017-11-04 22:21 | CT_ITS ---
STUDY: CT BRAIN WITHOUT CONTRAST REASON FOR EXAM: Male, 82 years old. Fall. Nasal injury. RADIATION DOSAGE (If Supplied By Facility): CTDIvol = ( 44.99 ) mGy, DLP = ( 796.11 ) mGycm TECHNIQUE: Transaxial CT imaging of the brain was performed without administration of intravenous contrast material. Individualized dose optimization techniques were used for this CT. COMPARISON: CT of the facial bones, November 04, 2017. CTs of the head, October 07, 2017 and October 02, 2016.. FINDINGS: There is soft tissue irregularity about the bridge of the nose. There is associated nasal bone fractures. Normal calvarium. There is mild cerebral atrophy with widening of the extra-axial spaces and ventricular dilatation. There are areas of decreased attenuation within the white matter tracts of the supratentorial brain, consistent with microvascular disease changes. Normal basal ganglia and thalami. Normal brainstem. Normal cerebellum. There is no intracranial hemorrhage. There are no findings of an acute ischemic infarction. Normal visualized paranasal sinuses. CT/Brain/Head without Contrast IMPRESSION: Chronic involutional changes without evidence of acute intracranial or calvarial abnormality. There is no significant change in intracranial findings when compared to the prior study. Electronically Signed: Chandana Zavala DO at 23:14 EDT Tel [phone], Service support ,
--- NOTE | 2017-11-04 22:21 | CT_ITS ---
STUDY: CT CERVICAL SPINE WITHOUT CONTRAST REASON FOR EXAM: Male, 82 years old. Trauma RADIATION DOSAGE (If Supplied By Facility): CTDIvol = ( 26.82 ) mGy, DLP = ( 584.52 ) mGycm TECHNIQUE: High resolution transaxial imaging was performed without contrast material. Sagittal and coronal images were reconstructed. Individualized dose optimization techniques were used for this CT. COMPARISON: Prior study of September 03, 2016 FINDINGS: Normal craniovertebral junction. Normal anterior atlantoaxial articulation. Normal odontoid process. Normal cervical lordosis. There is diffuse endplate spondylosis from C3 to C7. C2-3: Disc spacing is normal. There are hypertrophic facet changes on the left. There is mild foraminal narrowing on the left. There is no central canal stenosis. C3-4: There is severe disc space narrowing. There is severe bilateral foraminal narrowing. Mild bilateral degenerative facet changes are present. There is a large posterior osteophyte arising from the superior endplate of C4 creating severe canal stenosis. C4-5: There is severe disc space narrowing. There are bilateral hypertrophic degenerative facet changes left side more severely affected than right. There is moderately severe bilateral foraminal narrowing. There is no central canal stenosis. C5-6: There is severe disc space narrowing. There is severe bilateral foraminal narrowing. There is no central canal stenosis. C6-7: There is severe disc space narrowing. There are bilateral hypertrophic degenerative facet changes. There is moderately severe bilateral foraminal narrowing. There is mild central canal stenosis. C7-T1: There are hypertrophic degenerative facet changes on the right. There is no central canal or foraminal stenosis. There is mild disc space narrowing. Normal visualized soft tissue structures. CT/Spine Cervical without Contras IMPRESSION: Diffuse cervical degenerative changes as detailed above. There is no evidence of fracture or subluxation. Electronically Signed: Kyle Rincon MD at 23:22 EDT , Service support ,
--- NOTE | 2017-11-04 22:21 | RAD_ITS ---
STUDY: X-RAY - PELVIS REASON FOR EXAM: Male, 82 years old. Trauma TECHNIQUE: One view of the pelvis was obtained. COMPARISON: None. FINDINGS: There is a non-specific bowel gas pattern. Normal visualized soft tissue structures. Normal bilateral iliac wings, sacroiliac joints and visualized sacrum. Normal visualized bilateral superior and inferior pubic rami. Normal pubic symphysis. Normal ischial tuberosities. Normal visualized right femoral head. Normal right acetabulum. Normal right hip joint. Normal visualized left femoral head. Normal left acetabulum. Normal left hip joint. RAD/Pelvis 1 or 2 Views IMPRESSION: Normal x-ray examination of the pelvis. Electronically Signed: Kyle Rincon MD at 23:15 EDT , Service support ,
--- NOTE | 2017-11-04 22:21 | CT_ITS ---
STUDY: CT FACIAL BONES WITHOUT CONTRAST REASON FOR EXAM: Male, 82 years old. Fall. A avulsion to the bridge of nose. RADIATION DOSAGE (If Supplied By Facility): CTDIvol = ( 29.38 ) mGy, DLP = ( 569.49 ) mGycm TECHNIQUE: The patient was scanned in a multi detector CT scanner. Sagittal and coronal images were reconstructed. Individualized dose optimization techniques were used for this CT. COMPARISON: None. FINDINGS: Normal soft tissue structures. Normal orbital felder and orbital contents. There are depressed fractures of the nasal bones. There is avulsion of the soft tissues off the bridge of the nose. There is a new larger erosion in the right maxilla. The root of what appears to be the second incisor protrudes anteriorly into the soft tissues overlying this defect. There is no other demonstrated fracture. Normal visualized paranasal sinuses. CT/Sinus/Facial Bone IMPRESSION: 1. Depressed nasal bone fractures. There is avulsion of the skin and soft tissues off the bridge of the nose. 2. What appears to be a chronic defect in the right maxilla. There is a fracture of the root of the second incisor which protrudes outward into the overlying soft tissues. Electronically Signed: Chandana Zavala DO at 23:12 EDT Tel [phone], Service support ,
--- NOTE | 2017-11-04 22:24 | RAD_ITS ---
STUDY: X-RAY - RIGHT KNEE REASON FOR EXAM: Male, 82 years old. Trauma TECHNIQUE: 2 view(s) of the knee. COMPARISON: None. FINDINGS: Normal visualized distal femur. Normal visualized proximal tibia and fibula. Normal proximal tibiofibular articulation. Normal medial femorotibial compartment. Normal lateral femorotibial compartment. Normal patellofemoral articulation. The soft tissue structures are unremarkable. RAD/Knee 1 or 2 Views IMPRESSION: Normal x-ray examination of the knee. Electronically Signed: Kyle Rincon MD at 23:04 EDT , Service support ,
--- NOTE | 2017-11-04 22:40 | RAD_ITS ---
STUDY: X-RAY CHEST REASON FOR EXAM: Male, 82 years old. Fall. TECHNIQUE: Single AP portable view of the chest. COMPARISON: October 24, 2017. FINDINGS: Telemetry wires overlie the chest. Again seen is a large ovoid mass in the right upper lobe. This appears increased from the prior study now measuring 13.2 x 8.4 cm. There is diffuse interstitial changes throughout the right lung with probable right pleural effusion. Left lung appears clear. Sternal cerclage wires are present from a prior sternotomy. The heart is normal in size. No mediastinal left hilum. The right hilum is obscured. Normal visualized pulmonary arteries. There is atherosclerotic calcification of the aortic arch with tortuosity. No visualized osseous changes. There is no demonstrated abnormality of the visualized soft tissue structures of the upper abdomen. RAD/Chest 1 View (Portable) IMPRESSION: Enlarging right upper lobe mass. There is now associated atelectasis/pleural effusion at the right lung base. Electronically Signed: Chandana Zavala DO at 23:03 EDT Tel [phone], Service support ,
[2017-11-04] MEDS: 0.9% Normal Saline 1,000 ML 999 ML IV (23:11)
[2017-11-04] MEDS: fentaNYL 100 MCG/2 ML Ampul 25 MCG IV (23:11)
[2017-11-04 23:37] VITALS: BP 116/73; PULSE 108; RESP 30; O2SAT 93
--- NOTE | 2017-11-05 00:19 | ED.DCSUM_ITS ---
- ER Visit Summary Date of Service: 11/05/17 Chief Complaint: Fall History of Present Illness: The patient is a 82 M with a fall today. He fell at his assisted living facility. He tripped on a rug. He did hit his face and complains ofthem. He also has bilateral knee pain. He denies loss of consciousness. Denies any weakness or numbness. Denies recent fevers or illness. Denies any chest pain, abdominal pain, or back pain. Denies GI symptoms. He does take aspirin and Plavix. Physical Examination: Afebrile and vital signs unremarkable except for heart rate of 108. Head is atraumatic except for a nasal bridge abrasion. Neck is nontender. Chest nontender. Heart regular. Lungs clear. Abdomen soft and nontender. Back is nontender. Hips nontender. Bilateral knees diffusely tender anteriorly. No laxity or deformity. Good extension. Neurovascular intact distally. Skin appears normal. Upper extremities atraumatic and unremarkable. No focal or lateralizing neurologic abnormalities. Patient is alert and oriented. Test Results: CT head showed a nasal bone fracture and a second incisor fracture. C-spine showed no acute process. Chest x-ray showed increasing right lung mass. X-rays of the pelvis and knees were unremarkable. Emergency Department Course and Treatment: Patient was seen shortly after arrival. He had a mechanical fall. He had no medical complaints or concerns. Imaging was performed. CT had showed a nasal bone fracture. He does have an overlying abrasion secondary to the nose rest on his glasses. He had a recent laceration to this area and it seems to have opened up. There is no indication for sutures at this time. I do not believe it will heal with sutures. This was dressed with a nonstick dressing. Patient has a fracture to the root of his second right incisor near the maxillary sinus. He is aware of this and has follow-up with dental. C-spine imaging unremarkable. Patient has a right lung mass which is increasing in size. He was aware of this already. On reevaluation, the patient is doing well. Vitals unremarkable. Good mentation. No new or worsening symptoms. No new complaints. Patient will be discharged back to his facility. His family will take him. No other questions or concerns. Patient should return if he has any new or worsening issues. Treatment Plan: As above Disposition: Discharged Impression: 1. Nasal abrasion 2. Nasal bone fracture 3. Bilateral knee contusions This note was generated with [employer] dictation software. It may contain incorrect words, spelling, and punctuation that were not noted in review of the chart prior to signing ED Disposition - Plan for ED Patient: Chief Complaint: Fall Referrals: Chase Rene MD [Primary Care Provider] -
--- NOTE | 2017-11-05 00:19 | ED.DEP ---
ED Disposition - Plan for ED Patient: Chief Complaint: Fall Instructions: ED Mechanical Fall Referrals: Chase Rene MD [Primary Care Provider] -
--- NOTE | 2017-11-05 00:36 | DCINST.ED_ITS ---
ED Disposition - Plan for ED Patient: Chief Complaint: Fall Instructions: ED Mechanical Fall Prescriptions: Hydrocodone Bitart/Apap 5-325 [[place] 5MG-325MG] 1 tab PO Q6H PRN PRN 3 Days #10 tab PRN Reason: Pain Referrals: Chase Rene MD [Primary Care Provider] -
[2017-11-05 00:55] VITALS: RESP 28
== END 2017-11-05 00:56 | disposition home or self-care (01) ==
LOC: ED 23:12
PROVIDERS: Emergency Provider Emergency Medicine; Family Provider Family Medicine; PCP Family Medicine
DX: S02.2XXA Fracture of nasal bones, initial encounter for closed fracture (principal); S00.31XA Abrasion of nose, initial encounter; S02.5XXA Fracture of tooth (traumatic), initial encounter for closed fracture; S80.02XA Contusion of left knee, initial encounter; S80.01XA Contusion of right knee, initial encounter; W18.09XA Striking against other object with subsequent fall, initial encounter; Y93.9 Activity, unspecified; Y92.099 Unspecified place in other non-institutional residence as the place of occurrence of the external cause; R91.8 Other nonspecific abnormal finding of lung field; F03.90 Unspecified dementia, unspecified severity, without behavioral disturbance, psychotic disturbance, mood disturbance, and anxiety; K21.9 Gastro-esophageal reflux disease without esophagitis; E78.00 Pure hypercholesterolemia, unspecified; N40.0 Benign prostatic hyperplasia without lower urinary tract symptoms; H40.9 Unspecified glaucoma; K59.00 Constipation, unspecified; Z86.79 Personal history of other diseases of the circulatory system; Z79.82 Long term (current) use of aspirin; Z79.02 Long term (current) use of antithrombotics/antiplatelets; Z79.899 Other long term (current) drug therapy
CPT/HCPCS: 70450; 70486; 71045; 72125; 72170; 73560; 96361; 96374; 99284; J7030

== ENCOUNTER 2017-11-08 07:14 | Inpatient (IN) | payer MEDICARE, OTHER, SELFPAY ==
[2017-11-08] VITALS (24 sets, daily range): BP systolic 113–152; BP diastolic 65–80; PULSE 98–114; RESP 14–40; TEMP 36.7–37.5; O2SAT 92–98; BMI 28.0; BMI 27.6
--- NOTE | 2017-11-08 | IMM_PTH ---
PATIENT: David Stover LOC: [facility] U#:[id number] AGE/SX: 82/M ROOM: [facility] RE11/08/[address]: Dr. Mynor Perez DO : 1935 BED: 1 DIS: 11/11/2017 SPEC #: [id number] RECD: 11/09/17 12:29 STATUS: COURTNEY REQ #: [id number] LUC: 11/08/17 00:[address]: Mynor Perez DEPT: IMMUNOHISTOCHEMISTRY RECD BY: Verona Gonzáles ENTERED: 11/09/17 12:34 SP TYPE: IMMUNO OTHR DR: MD Dr. Gael Kirk MD Tissues: Lung, NOS Procedures: NAPSIN A (add) Emerson Ret (add) CK20 (add) CK5-6 (add) CK8 (add) TTF1 (add) Vimentin (add) P40 (add) CK7 (initial) PHYSICIAN & [address] [address] SPECIMEN INFORMATION: Tissue Source: Right lung biopsy Clinical Info: Lung mass Specimen Number: [id number] CPT code: 95832, 30396 x8 METHODOLOGY: Deparaffinized sections of prefer/formalin-fixed tissue or PAP/DQ stained slides are incubated with monoclonal/polyclonal antibodies/oligonucleotide probes. Localization is made via biotin free immunoperoxidase method. Appropriate controls are performed and reacted as expected. Results on target cell population are indicated in the following table: RESULTS: ANTIBODY / CLONE RESULT CK7 (OV-TL12/30) positive CK8 (66cgmwW84) positive, weak CK20 (KS20.8) negative TTF-1 (8G7G3/1) negative Napsin A (Rabbit Polyclonal) negative CK5-6 (D5 & 1684) negative P40 (BC28) negative CALRET (polyclonal) negative Vimentin (V9) positive These tests were developed and their performance characteristics determined by [facility]. They may not have been cleared or approved by the U.S. Food and Drug Administration. The FDA has determined that such clearance or approval is not necessary. INTERPRETATION: Right lung biopsy: A few atypical cells noted, suspicious for non-small cell carcinoma in the background of inflammation, necrosis and fibrosis. SJ:jamin 11/10/17 Case has been reviewed in consultation with Dr. Mercado who concurs with the above diagnosis. IDC:AM
[2017-11-08 07:21] LABS: Bedside Glucose 95 mg/dL (70-110)
--- NOTE | 2017-11-08 07:22 | CT_ITS ---
STUDY: CT BRAIN WITHOUT CONTRAST REASON FOR EXAM: Male, 82 years old. Weakness. RADIATION DOSAGE (If Supplied By Facility): CTDIvol = ( 44.99 ) mGy, DLP = ( 796.11 ) mGycm TECHNIQUE: Transaxial CT imaging of the brain was performed without administration of intravenous contrast material. Individualized dose optimization techniques were used for this CT. COMPARISON: 11/04/2017. FINDINGS: Normal soft tissue structures. Normal calvarium. There is moderate cerebral atrophy with widening of the extra-axial spaces and ventricular dilatation. Normal white matter tracts of the cerebral hemispheres. Normal basal ganglia and thalami. Normal brainstem. There is mild cerebellar atrophy. There is atherosclerotic calcification of the vertebral and cavernous carotid arteries. There is no intracranial hemorrhage. There are no findings of an acute ischemic infarction. Normal visualized paranasal sinuses. CT/Brain/Head without Contrast IMPRESSION: Chronic involutional changes of the brain. No demonstrated acute intracranial process. N.B. : The above information has been verbally conveyed by Cristofer Gr MD to Chase Lombardo, Referring Physician, on 11/08/2017 07:46:51 (ET). Electronically Signed: Cristofer Gr MD at 7:48 EDT , Service support ,
--- NOTE | 2017-11-08 07:22 | RAD_ITS ---
STUDY: X-RAY CHEST REASON FOR EXAM: Male, 82 years old. Cough, right-sided weakness TECHNIQUE: Single AP portable view of the chest. COMPARISON: 11/04/2017 FINDINGS: Cardiac monitoring leads overlie the chest. There is no change to the appearance of the large right upper lobe mass. There is right lower lobe airspace opacity suggesting consolidation and/or pleural effusion. The left lung is clear. Sternal wires are present. Normal mediastinum and kya. Normal visualized pulmonary arteries. There is atherosclerotic calcification of the aortic arch with tortuosity. Normal visualized thoracic spine. Normal visualized ribs, clavicles, and shoulders. There is no demonstrated abnormality of the visualized soft tissue structures of the upper abdomen. RAD/Chest 1 View IMPRESSION: Large right upper lobe mass, similar to prior study. Patchy right lower lobe airspace disease, likely representing a combination of consolidation and pleural effusion. Electronically Signed: Jona Anaya DO at 7:54 EDT Tel , Service support ,
--- NOTE | 2017-11-08 07:50 | ED.VISSUMM ---
- ER Visit Summary Date of Service: 11/08/17 Chief Complaint: Confusion and weakness History of Present Illness: The patient is a 82 M who presents with confusion and weakness that was noticed this morning at approximately 6: 30 a.m. Patient was last known well last night. Patient is confused and is a poor historian. Patient is only alert oriented to person and place. Physical Examination: Vital signs show blood pressure 128/73, pulse of 111, respiratory rate of 38, and oxygen saturation of 92% on nasal cannula oxygen. Patient is alert and oriented to person and place. Patient knows he is in a hospital. Patient is confused on the year. Pupils are equal, round, and reactive to light bilaterally. Extraocular muscles are intact. There are no visual deficits noted. Oral mucosa is pink and dry. Neck is supple. Trachea is midline. There is no JVD noted. Heart was regular and tachycardic. Lungs are clear but diminished. There is poor respiratory effort noted. Abdomen is soft nontender. Cranial nerves II through XII are intact. There is some pronator drift on the right. Strength is 4/5 in the right lower extremity with hip extension but is otherwise 5/5 bilaterally in the upper and lower extremities. There are no sensory deficits noted. The remaining physical exam is within normal limits. Test Results: CT scan of the brain was obtained. There is no acute intracranial abnormality noted. EKG showed sinus tachycardia with a rate of 111. There is a right bundle branch block pattern noted. There are no acute ST or T-wave changes noted. Chest x-ray shows a right upper lobe mass which is unchanged. There is increased consolidation and/or effusion of the right lower lobe. CBC shows a mild leukocytosis of 11.2. Sodium was slightly low at 135. INR was 1.2. Troponin was 0.216. Blood cultures and lactate were obtained and are pending. Emergency Department Course and Treatment: Case was discussed with Dr. Perez. He will admit the patient to his service for altered mental status. Patient and family understood and were agreeable with the plan. All questions were answered. Disposition: Admit to hospital Impression: Altered mental status This note was generated with [employer] software. It may contain incorrect words, spelling, and punctuation that were not noted in review of the chart prior to signing ED Disposition - Plan for ED Patient: Disposition: Acute Care Hospital [facility] Chief Complaint: Neuro S/Sx Diagnosis: Altered mental status, unspecified Referrals: Chase Rene MD [Primary Care Provider] -
[2017-11-08 08:14] LABS: Absolute Lymphocyte Count 1.11 X10^3/ul (0.83-4.51); Absolute Neutrophil Count 8.8 X10^3/uL (2.0-7.7); Basophil# 0.02 X10^3/uL; Basophil% 0.2 % (0-1); Eosinophil# 0.22 X10^3/uL; Hematocrit 44.7 % (40-54); Hemoglobin 14.7 g/dl (13.0-16.5); Lymphocyte # 1.11 X10^3/ul (4.0); Lymphocyte % 9.9 % (19-41); Mean Corp Hgb Conc 32.9 g/gl (32-36); Mean Corpuscular Hgb 29.5 pg (27.0-32.0); Mean Corpuscular Volume 89.6 fL (80-94); Mean Platelet Vol. 9.5 fl (6.2-12.0); Monocyte# 1.05 X10^3/uL; Monocyte% 9.3 % (0-10); Neutrophil # 8.81 X10^3/uL (2.7-7.7); Neutrophil % 78.3 % (47-70); POSITIVE COUNT NO; POSITIVE DIFFERENTIAL NO; POSITIVE MORPHOLOGY NO; Platelet Count 258 K/mm3 (150-450); RBC Distribution Width CV 14.4 % (11.6-14.6); RBC Distribution Width SD 46.8 fl (35.1-43.9); Red Blood Count 4.99 M/mm3 (4.6-6.2); White Blood Count 11.2 K/mm3 (4.4-11.0)
[2017-11-08 08:19] LABS: International Normalized Ratio 1.2; Prothrombin Time (Protime)PT. 15.2 SECONDS (11.7-14.9)
[2017-11-08 08:20] LABS: Partial Thromboplast Time 39.8 Seconds (24.1-36.2)
[2017-11-08 08:21] LABS: Anion Gap 10 (5-15); BUN 14 mg/dL (7-18); BUN/Creat Ratio 11.9 RATIO (10-20); Calcium,Total 7.9 mg/dL (8.5-10.1); Chloride 98 mmol/L (98-107); Creatinine, Serum 1.18 mg/dL (0.70-1.30); EST Glomerular Filtration Rate 63 mL/min (>60); Est Glom Filt Rate - Afr Amer 76 mL/min (>60); Estimated Creatinine Clearance 51.55 ml/min; Glucose 106 mg/dL (74-106); Potassium 3.6 mmol/L (3.5-5.1); Sodium Level 135 mmol/L (136-145)
--- NOTE | 2017-11-08 09:11 | NURSING ---
DR CASAS IN ER
--- NOTE | 2017-11-08 10:03 | CT_ITS ---
PROCEDURE: CT GUIDED RIGHT LUNG BIOPSY CLINICAL HISTORY: Male, 82 years old. Right upper lobe mass. Right pleural effusion. CONSENT: Yes, patient's daughter. Time-Out Called: Yes Consent form signed: YES PT-PTT Levels Checked: Yes SEDATION: Mild sedation accomplished with 1 mg Versed, 25 mcg fentanyl IV. TECHNIQUE: CT-guided right lung biopsy with standard CT fluoroscopic protocol. Start 1019 hours. Stop 1048 hours. PHYSICIAN: Dr. Parsons MEDICATIONS: 1% lidocaine administered subcutaneously for local anesthesia. ACCESS SITE: Right upper thorax, anterolateral approach. COMPLICATIONS: None immediate. The risks, benefits, and alternatives to the procedure and sedation were explained to the patient's daughter. The specific risks of bleeding, infection, and pneumothorax requiring chest tube insertion were discussed and accepted by the patient's daughter. Written informed consent was obtained from the patient's daughter. PROCEDURE: CT evaluation of the upper anterolateral thorax was carried out. An adequate portion of the right upper lobe lung mass was identified with the patient in the CT scanner in the supine position. The overlying skin was prepped and draped in sterile fashion. 2% lidocaine was administered subcutaneously for local anesthesia. Under CT guidance, an 18-gauge coaxial needle/stylet system was advanced just into the anterolateral right upper lobe lung mass. The inner stylet was removed and biopsy gun was inserted and fired to obtain 3 subsequent tissue samples given immediately to the Pathologist. Adequate tissue sample was confirmed by the Pathologist present in the CT suite. Coaxial system was then removed. Hemostasis was achieved and a sterile dressing was applied. Right upper lobe lung biopsies x3 were collected and sent to the laboratory for analysis, as requested by the referring clinician. The patient tolerated the procedure well, without immediate complications. A post biopsy CT imaging was accomplished and show no immediate complications such as pneumothorax or significant hemorrhage. CT/Biopsy/Inj or Needle Placement IMPRESSION: Successful CT-guided right lung biopsy x3. Pathology determined adequate tissue biopsy amount. Electronically Signed: Danny Parsons, at 13:20 EDT Tel , Service support ,
--- NOTE | 2017-11-08 10:09 | NURSING ---
111 GENERALIZED WEAKNESS, MENTAL STATUS CHANGE DAVIDKY
[2017-11-08 10:14] LABS: Lactic Acid 1.9 mmol/L (0.4-2.0)
--- NOTE | 2017-11-08 10:30 | LUNB_PTH ---
PATIENT: David Stover LOC: [facility] U#:[id number] AGE/SX: 82/M ROOM: [facility] RE11/08/[address]: Dr. Mynor Perez DO : 1935 BED: 1 DIS: 11/11/2017 SPEC #: [id number] RECD: 11/08/17 11:17 STATUS: COURTNEY REQ #: [id number] LUC: 11/08/17 10:[address]: Mynor Perez DEPT: SURGICAL PATHOLOGY RECD BY: Nabil Phillips ENTERED: 11/08/17 11:18 SP TYPE: LUNG BX OTHR DR: Dr. Chase Rene MD Tissues: Lung, NOS Procedures: Surgery Specimen Level IV Diff Quik Stain (control) HEADER OPERATION: Right lung biopsy PRE-OP DIAGNOSIS: Lung mass TISSUE SUBMITTED: Right lung biopsy MICROSCOPIC DIAGNOSIS Right lung mass, CT-guided core biopsy: A few atypical cells noted suspicious for non-small cell carcinoma in the background of inflammation, necrosis and fibrosis. JEN:jamin 11/10/17 COMMENT The specimen is evaluated at the time of CT-guided right lung biopsy by Dr. Villar. Immediate Evaluation = Atypical cells suspicious for malignancy noted. Immunohistochemistry ([id number]) supports the above diagnosis. Rebiopsy is suggested if clinically indicated. This case was discussed with Dr. Perez on 11/10/17. Case has been reviewed in consultation with Dr. Mercado who concurs with the above diagnosis. IDC:AM MICROSCOPIC DESCRIPTION Slides are reviewed. GROSS DESCRIPTION Received in fixative is one container labeled with the patient's name and designated right lung biopsy, CT-guided. The specimen consists of multiple fragments of livingston-white soft tissue that in aggregate measure 0.7 x 0.2 x <0.1 cm. The specimen is totally submitted in one cassette. Three touch imprints are prepared at the time of core biopsy. / JEN:jamin 11/08/17 TC:5 CPT: 82582, 94076
--- NOTE | 2017-11-08 10:56 | ED.RN ---
Report update given to Maude at [facility].
--- NOTE | 2017-11-08 11:19 | NURSING ---
ER CALLED BY THIS RN. PT READY TO GO TO FLOOR.
--- NOTE | 2017-11-08 11:39 | ED.RN ---
admit delay related to procedure done before admit.
--- NOTE | 2017-11-08 11:43 | MRI_ITS ---
STUDY: MRI BRAIN WITHOUT CONTRAST REASON FOR EXAM: Male, 82 years old. Slurred speech and weakness TECHNIQUE: Standardized multiplanar fat and water weighted pulse sequences were obtained. COMPARISON: CT of the brain on November 08, 2017 FINDINGS: Moderate atrophy and periventricular white matter ischemic changes.. There are numerous small foci of restricted diffusion seen within the right parietal, left parietal and right frontal lobes Normal bilateral basal ganglia. Normal thalami. There is no extra-axial fluid accumulation. Normal flow voids within the major intracranial circulation suggesting patency by spin echo criteria except for abnormal signal intensity within the left cavernous carotid which may be consistent with delayed flow or thrombosis. Normal sella turcica, pituitary gland, infundibular stalk, optic chiasm and hypothalamus. Normal tectal plate and pineal gland. Normal midbrain, shane and medulla. Normal cerebellum. Normal basal cisterns. Normal bilateral temporal bones. Normal bilateral internal auditory canals. Postsurgical changes of the right orbit. Normal visualized paranasal sinuses. Normal calvarium and skull base. Normal visualized soft tissue structures. Normal visualized upper cervical spine. MRI/Brain without Contrast IMPRESSION: Moderate atrophy and periventricular white matter ischemic changes. Multiple small foci of acute ischemia within the bilateral parietal and right frontal lobes suggesting possibility of embolic disease however clinical correlation is recommended. 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 MRA recommended for further evaluation Electronically Signed: Trae Clancy MD at 17:45 EDT , Service support ,
[2017-11-08] MEDS: Acetaminophen 500 MG Tablet 1000 MG PO ×2 (14:54→22:43)
[2017-11-08] MEDS: Senna/Docusate Sodium 1 Tablet 2 TABLET PO (14:55)
[2017-11-08] MEDS: Tamsulosin HCl 0.4 MG Capsule PO (14:55)
[2017-11-08] MEDS: DULoxetine Hcl 30 MG Capsule PO ×2 (14:55→22:41)
[2017-11-08] MEDS: clonazePAM 0.5 MG Tablet 0.25 MG PO (14:57)
[2017-11-08] MEDS: BRIMONIDINE 0.2% 5ML BOTTLE 2 DRP EACH EYE ×2 (14:58→22:42)
--- NOTE | 2017-11-08 18:05 | ECHOCS_ITS ---
Reason For Study: TIA/CVA Procedure This was a 2D Doppler, Color Flow transthoracic echocardiogram. The study was technically difficult. Exam performed portable in patient room. Left Ventricle Normal size and thickness. The estimated ejection fraction is 65 %. Stage 1 diastolic dysfunction. No regional wall motion abnormalities noted. Right Ventricle Moderately dilated right ventricle. Normal systolic function. Atria Normal left atrium. Normal right atrium. Normal atrial septum. Mitral Valve The mitral valve is structurally normal. No prolapse or stenosis seen. Tricuspid Valve Normal tricuspid valve. Trivial tricuspid valve insufficiency. Right ventricular systolic pressure estimated to be 28 mmHg. Aortic Valve Trisinus/trileaflet aortic valve. Mild diffuse aortic valve thickening. Mild aortic stenosis. Pulmonic Valve The pulmonic valve is not well visualized. Great Vessels Normal aortic root. Normal arch. Pericardium/Pleural No pericardial effusion. Medication Definity0.4ml given slow IV push to enhance endocardial definition. MMode/2D Measurements & Calculations LVIDd: 3.1 cm IVSd: 1.0 cm LAV(MOD-bp): 24.8 ml LVIDs: 2.1 cm LVPWd: 0.75 cm LAV(MOD-bp) Indexed: 12.1 ml/m2 RVDd: 5.0 cm FS: 31.7 % LAV(MOD-sp2): 25.8 ml LAV(MOD-sp4): 20.0 ml LA A4 area: 9.9 cm2 RA A4 area: 8.9 cm2 Doppler Measurements & Calculations MV E max ortiz: 63.1 cm/sec Lat Peak E' Ortiz: 11.5 cm/sec Med Peak E' Ortiz: 6.3 cm/sec MV A max ortiz: 121.6 cm/sec E/E' lat: 5.5 E/E' med: 10.1 MV E/A: 0.52 Ao V2 max: 257.3 cm/sec LV V1 max: 138.7 cm/sec PA V2 max: 111.8 cm/sec Ao max P.5 mmHg LV V1 max P.7 mmHg Ao V2 mean: 185.9 cm/sec LV V1 mean P.8 mmHg Ao mean P.4 mmHg LV V1 mean: 105.8 cm/sec Ao V2 VTI: 43.3 cm LV V1 VTI: 23.5 cm Interpretation Summary The estimated ejection fraction is 65 %. Stage 1 diastolic dysfunction. Moderately dilated right ventricle. Right ventricular systolic pressure estimated to be 28 mmHg. Mild aortic stenosis. Compared to echo report dated 05/16/2017, no appreciable changes noted. The study was technically difficult. Contrast injection was performed. Ordering Physician: Mynor Perez Referring Physician: Marissa Lopez Performed By: Rosina Garcia RDCS, RVT
--- NOTE | 2017-11-08 18:13 | CT_ITS ---
CTA of the neck Indication stroke TECHNIQUE: CTA of the neck was performed scanning in a dynamically enhanced fashion from the base of skull through the pulmonary apex followed by sagittal and coronal reconstructions. Radiographic technique was optimized to limit radiation dose. DLP was 473.96 FINDINGS There is minor soft plaque within the right common carotid. There is mild soft and calcific plaque in the carotid bulb. There is also mild calcific plaque within the internal carotid. There is mild diffuse soft plaque seen within the left common carotid. There is moderate calcific and soft plaque in the carotid bulb. 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 Left vertebral dominant and normal caliber.. 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
--- NOTE | 2017-11-08 20:20 | HP.PCM_ITS ---
Problem List (1) Generalized weakness Status: Acute (2) Altered mental status, unspecified Status: Acute Qualifiers: Altered mental status type: delirium Qualified Code(s): R41.0 - Disorientation, unspecified History of Present Illness Date of Admission: 11/08/17 Chief Complaint: Generalized weakness, altered mental status The patient is a 82 year old M who was brought to the emergency room at [facility] from an assisted living facility at which she resides due to increased confusion and generalized weakness. The staff at the assisted living facility noticed this approximately 630 this morning. Patient has a history of dementia and review of systems was unable to obtain from the patient. Patient is only oriented as to person and place at this time. On examination in the ER , pupils are equal round and reactive to light bilaterally, there are no visual deficits noted, pronator drift was noted on the right, the strength in the right lower extremity was 4/5 but otherwise his strength in the upper and lower extremities was 5/5. No sensory deficits were noted, CT of the brain was obtained in the emergency room that revealed no acute intracranial abnormality, EKG shows a sinus tachycardia at 111, x-ray showed a right upper lobe mass which was noted to be present on previous chest x-rays, there was effusion or consolidation in the right lower lobe also noted. Patient had a CBC performed that showed a mild white cell count elevation of 11.2. Troponin was slightly elevated at 2.16. Case was discussed with the hospitalist service who felt that the patient had altered mental status secondary to unknown etiology, the possibility of brain metastases from an unknown primary was considered, I talked with his daughter who is his POA and she wanted the patient to be DNR CC arrest. Patient will be admitted to PCU, and age scores will be carried out, he will have an MRI of the brain today with contrast, patient is to undergo a CT-guided needle biopsy of his right lung mass -he is directly to go to radiology from the emergency room as this was preplanned to take place at 9:00 this morning. I talked to with radiology about the need to get this done. Patient will remain on his home meds, if the MRI shows evidence of a stroke, stroke workup will be instituted. 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) Asthma (Chronic) Depression (Chronic) Constipation (Chronic) CKD (chronic kidney disease), stage III (Chronic) Medical History: Medical History (Last Reviewed 10/27/17 @ 14:30 by Marissa Lopez NP-C) Chest pain (Acute) R07.9 Hypokalemia (Acute) E87.6 Hypocalcemia (Acute) E83.51 Closed head injury (Resolved) S09.90XA Debility (Acute) R53.81 Dementia (Chronic) F03.90 Fall (Resolved) W19.XXXA CAD (coronary artery disease) (Chronic) I25.10 HTN (hypertension) (Chronic) I10 HLD (hyperlipidemia) (Chronic) E78.5 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) Asthma (Chronic) J45.909 Depression (Chronic) F32.9 Constipation (Chronic) K59.00 CKD (chronic kidney disease), stage III (Chronic) N18.3 Chronic back pain M54.9, G89.29 BPH (benign prostatic hyperplasia) N40.0 Glaucoma H40.9 Allergies fentanyl [From Duragesic] Allergy (Verified 11/08/17 07:18) Unknown Penicillins Allergy (Verified 11/08/17 07:18) Swelling Home Medications: Ambulatory Orders Medication Instructions Recorded Duloxetine Hcl [Cymbalta] 30 mg PO BID 05/31/14 Mirtazapine [Remeron] 7.5 mg PO QHS tab 09/20/16 Pravastatin [Pravachol] 40 mg PO DAILY@2200 tab 09/20/16 Senna/Docusate Sodium [Senokot-S] 2 tab PO DAILY #60 tab 09/20/16 Clopidogrel Bisulfate [Plavix] 75 mg PO DAILY 10/03/16 Tamsulosin HCl [Flomax] 0.4 mg PO DAILY 10/03/16 Aspirin [Aspirin, Baby] 81 mg PO DAILY@0800 #90 tab.chew 10/06/16 Clonazepam [Klonopin] 0.25 mg PO DAILY 05/14/17 Clonazepam [Klonopin] 0.5 mg PO QHS 05/14/17 Acetaminophen [Tylenol Tablet] 1,000 mg PO BID 10/10/17 Brimonidine Tartrate 0.2% 1 drp EACH EYE BID 10/10/17 [Brimonidine 0.2% 5Ml Bottle] Calcium Carbonate [Emerson-Gest] 500 mg PO Q2H PRN PRN 10/10/17 Nitroglycerin [Nitrostat] 0.4 mg SL PRN PRN 10/10/17 Quetiapine Fumarate [Seroquel] 200 mg PO QHS 10/10/17 Clonazepam [Klonopin] 0.25 mg PO DAILY PRN PRN 10/11/17 Polyethylene Glycol 3350 [Miralax] 17 gm PO DAILY 11/04/17 Hydrocodone Bitart/Apap 5-325 1 tab PO Q6H PRN PRN 3 Days #10 tab 11/05/17 [Hornbeck 5MG-325MG] Surgical History: noncontributory Psychiatric History: - - dementia Lives: - - assisted living Smoking Status: Former smoker Tobacco Use: Non-smoker Alcohol: None Drugs: None - *Family History Maternal Family History: Family History (Last Reviewed 10/27/17 @ 14:30 by DALTON Cottrell) Uncle CVA (cerebral vascular accident) Grandfather Alcoholism Father Myocardial infarction Heart disease CVA (cerebral vascular accident) CAD (coronary artery disease) Mother CVA (cerebral vascular accident) Breast cancer Rheumatoid arthritis History Items: Unknown, No pertinent history Paternal Family History: Family History (Last Reviewed 10/27/17 @ 14:30 by DALTON Cottrell) Uncle CVA (cerebral vascular accident) Grandfather Alcoholism Father Myocardial infarction Heart disease CVA (cerebral vascular accident) CAD (coronary artery disease) Mother CVA (cerebral vascular accident) Breast cancer Rheumatoid arthritis History Items: Unknown, No pertinent history Review of Systems Comment: Review of systems was not able to be obtained from the patient due to dementia, some medical information was supplied by the patient's daughter VTE Information - Inpt Only VTE Present on Admission: No VTE Mechan Device Prophylaxis: None VTE Pharm Prophylaxis ordered?: Yes Patient Problems: Active and Suspected Problems (Last Reviewed 10/27/17 @ 14:30 by Marissa Lopez NP-Lalo) Altered mental status, unspecified (Acute) Generalized weakness (Acute) - Physical Exam General: Alert, Cooperative, No apparent distress, Well developed, Confused HEENT: Atraumatic, PERRLA, EOMI, Normocephalic Oral: Moist Mucosa Neck: Supple, No Nuchal Rigidity, Trachea Midline, Thyroid Normal Size and Texture Lungs: Clear to auscultation, Normal air movement, No rhonchi, No wheeze, No rales Cardiovascular: Regular rate, Regular Rhythm, Normal S1, Normal S2, No murmurs, PMI Normal, No rub noted, No Gallop Abdomen: Bowel Sounds Present, Soft, Non Tender, Non-Distended, No hernias noted Extremities: No clubbing, No cyanosis, No edema Skin: No rashes, No breakdown Neurological: Cranial nerves II-XII grossly intact, Neuro grossly intact, Sensory exam intact to light touch and pain Psych/Mental Status: Flat Affect, - - he is alert but confused Vital Signs Temp Pulse Resp BP Pulse Ox 99.5 F H 98 18 122/70 H 98 11/08/17 19:36 11/08/17 19:36 11/08/17 19:36 11/08/17 19:36 11/08/17 19:44 Oxygen Flow Rate (L/min) [6] 3 Oxygen Flow Rate (L/min) [5] 3 Oxygen Flow Rate (L/min) [4] 3 Oxygen Flow Rate (L/min) [3] 3 Oxygen Flow Rate (L/min) [2] 3 Oxygen Flow Rate (L/min) [1 ( 3 Initial Baseline)] Oxygen Flow Rate (L/min) 2 Oxygen Delivery Method [7] Nasal Cannula Oxygen Delivery Method [6] Nasal Cannula Oxygen Delivery Method [5] Nasal Cannula Oxygen Delivery Method [4] Nasal Cannula Oxygen Delivery Method [3] Nasal Cannula Oxygen Delivery Method [2] Nasal Cannula Oxygen Delivery Method [1 ( Nasal Cannula Initial Baseline)] Oxygen Delivery Method Nasal Cannula Weight: 87.3 kg Body Mass Index (BMI) 27.6 Intake and Output for Last 24 Hours 11/06/17 11/07/17 11/08/17 23:59 23:59 23:59 Intake Total 600 / 600 Output Total 250 / 250 Balance 350 / 350 Assessment/Plan All Active Problems (Last Reviewed 10/27/17 @ 14:30 by Marissa Lopez NP-C) Altered mental status, unspecified (Acute) Generalized weakness (Acute) Lung mass (Acute) Chest pain (Acute) Hypokalemia (Acute) Hypocalcemia (Acute) Closed head injury (Resolved) Debility (Acute) Fall (Resolved) #1 generalized weakness-probably multifactorial in nature including probable right sided lung cancer-patient will undergo his lung biopsy today and be transferred from CT to PCU to be admitted, PT and OT will see patient, patient on MRI of the brain #2 increased confusion on a backdrop of dementia-probably multifactorial due to multiple medical problems #3 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
[2017-11-08] MEDS: Pravastatin 40 MG Tablet PO (22:42)
[2017-11-08] MEDS: Heparin Injection (Vial) 5,000 UNIT/ML VIAL 5000 UNIT SC (22:42)
[2017-11-08] MEDS: QUEtiapine 100 MG Tablet 200 MG PO (22:42)
[2017-11-08] MEDS: Mirtazapine 15 MG Tablet 7.5 MG PO (22:43)
[2017-11-09] VITALS (19 sets, daily range): BP systolic 106–140; BP diastolic 44–73; PULSE 73–143; RESP 16–32; TEMP 36.4–37.2; O2SAT 93–96; BMI 27.6
[2017-11-09 06:34] LABS: Anion Gap 8 (5-15); BUN 12 mg/dL (7-18); BUN/Creat Ratio 13.3 RATIO (10-20); Calcium,Total 7.9 mg/dL (8.5-10.1); Chloride 102 mmol/L (98-107); EST Glomerular Filtration Rate 86 mL/min (>60); Est Glom Filt Rate - Afr Amer 104 mL/min (>60); Estimated Creatinine Clearance 67.59 ml/min; Glucose 99 mg/dL (74-106); Sodium Level 139 mmol/L (136-145)
[2017-11-09 06:37] LABS: Absolute Lymphocyte Count 1.26 X10^3/ul (0.83-4.51); Absolute Neutrophil Count 6.5 X10^3/uL (2.0-7.7); Basophil# 0.02 X10^3/uL; Basophil% 0.2 % (0-1); Eosinophil# 0.29 X10^3/uL; Eosinophils% 3.3 % (0-5); Hematocrit 41.4 % (40-54); Hemoglobin 13.1 g/dl (13.0-16.5); Lymphocyte # 1.26 X10^3/ul (4.0); Lymphocyte % 14.1 % (19-41); Mean Corp Hgb Conc 31.6 g/gl (32-36); Mean Corpuscular Hgb 28.9 pg (27.0-32.0); Mean Corpuscular Volume 91.2 fL (80-94); Mean Platelet Vol. 9.3 fl (6.2-12.0); Monocyte# 0.84 X10^3/uL; Monocyte% 9.4 % (0-10); Neutrophil # 6.49 X10^3/uL (2.7-7.7); Neutrophil % 72.8 % (47-70); Platelet Count 221 K/mm3 (150-450); RBC Distribution Width CV 14.7 % (11.6-14.6); RBC Distribution Width SD 48.7 fl (35.1-43.9); Red Blood Count 4.54 M/mm3 (4.6-6.2); White Blood Count 8.9 K/mm3 (4.4-11.0)
[2017-11-09 06:40] LABS: POSITIVE COUNT NO; POSITIVE DIFFERENTIAL NO; POSITIVE MORPHOLOGY NO
[2017-11-09] MEDS: Heparin Injection (Vial) 5,000 UNIT/ML VIAL 5000 UNIT SC ×3 (06:52→22:00)
[2017-11-09] MEDS: Aspirin 81 MG TAB.CHEW PO (10:02)
[2017-11-09] MEDS: BRIMONIDINE 0.2% 5ML BOTTLE 2 DRP EACH EYE ×2 (10:02→21:56)
[2017-11-09] MEDS: DULoxetine Hcl 30 MG Capsule PO ×2 (10:03→22:00)
[2017-11-09] MEDS: Clopidogrel Bisulfate 75 MG Tablet PO (10:04)
[2017-11-09] MEDS: Acetaminophen 500 MG Tablet 1000 MG PO ×2 (10:04→22:00)
[2017-11-09] MEDS: Senna/Docusate Sodium 1 Tablet 2 TABLET PO (10:04)
[2017-11-09] MEDS: Tamsulosin HCl 0.4 MG Capsule PO (10:09)
[2017-11-09] MEDS: Polyethylene Glycol 3350 17 GM PACKET PO (10:09)
[2017-11-09] MEDS: clonazePAM 0.5 MG Tablet 0.25 MG PO (10:12)
--- NOTE | 2017-11-09 10:42 | CON.PCM_ITS ---
Reason for Consult Date of Consultation: 11/09/17 History of Present Illness: The patient is a 82 year old M per admit h&p:The patient is a 82 year old M who was brought to the emergency room at [facility] from an assisted living facility at which she resides due to increased confusion and generalized weakness. The staff at the assisted living facility noticed this approximately 630 this morning. Patient has a history of dementia and review of systems was unable to obtain from the patient. Patient is only oriented as to person and place at this time. On examination in the ER, pupils are equal round and reactive to light bilaterally, there are no visual deficits noted, pronator drift was noted on the right, the strength in the right lower extremity was 4/5 but otherwise his strength in the upper and lower extremities was 5/5. No sensory deficits were noted, CT of the brain was obtained in the emergency room that revealed no acute intracranial abnormality, EKG shows a sinus tachycardia at 111, x-ray showed a right upper lobe mass which was noted to be present on previous chest x-rays, there was effusion or consolidation in the right lower lobe also noted. Patient had a CBC performed that showed a mild white cell count elevation of 11.2. Troponin was slightly elevated at 2.16. Case was discussed with the hospitalist service who felt that the patient had altered mental status secondary to unknown etiology, the possibility of brain metastases from an unknown primary was considered, I talked with his daughter who is his POA and she wanted the patient to be DNR CC arrest. Patient will be admitted to PCU, and age scores will be carried out, he will have an MRI of the brain today with contrast, patient is to undergo a CT-guided needle biopsy of his right lung mass -he is directly to go to radiology from the emergency room as this was preplanned to take place at 9:00 this morning. I talked to with radiology about the need to get this done. Patient will remain on his home meds, if the MRI shows evidence of a stroke, stroke workup will be instituted. 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) Asthma (Chronic) Depression (Chronic) Constipation (Chronic) CKD (chronic kidney disease), stage III (Chronic) Medical History: Medical History (Last Reviewed 11/09/17 @ 11:04 by Gael Mcbride MD) Chest pain (Acute) R07.9 Hypokalemia (Acute) E87.6 Hypocalcemia (Acute) E83.51 Closed head injury (Resolved) S09.90XA Debility (Acute) R53.81 Dementia (Chronic) F03.90 Fall (Resolved) W19.XXXA CAD (coronary artery disease) (Chronic) I25.10 HTN (hypertension) (Chronic) I10 HLD (hyperlipidemia) (Chronic) E78.5 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) Asthma (Chronic) J45.909 Depression (Chronic) F32.9 Constipation (Chronic) K59.00 CKD (chronic kidney disease), stage III (Chronic) N18.3 Chronic back pain M54.9, G89.29 BPH (benign prostatic hyperplasia) N40.0 Glaucoma H40.9 Allergies fentanyl [From Duragesic] Allergy (Verified 11/08/17 07:18) Unknown Penicillins Allergy (Verified 11/08/17 07:18) Swelling Home Medications: Ambulatory Orders Medication Instructions Recorded Duloxetine Hcl [Cymbalta] 30 mg PO BID 05/31/14 Mirtazapine [Remeron] 7.5 mg PO QHS tab 09/20/16 Pravastatin [Pravachol] 40 mg PO DAILY@2200 tab 09/20/16 Senna/Docusate Sodium [Senokot-S] 2 tab PO DAILY #60 tab 09/20/16 Clopidogrel Bisulfate [Plavix] 75 mg PO DAILY 10/03/16 Tamsulosin HCl [Flomax] 0.4 mg PO DAILY 10/03/16 Aspirin [Aspirin, Baby] 81 mg PO DAILY@0800 #90 tab.chew 10/06/16 Clonazepam [Klonopin] 0.25 mg PO DAILY 05/14/17 Clonazepam [Klonopin] 0.5 mg PO QHS 05/14/17 Acetaminophen [Tylenol Tablet] 1,000 mg PO BID 10/10/17 Brimonidine Tartrate 0.2% 1 drp EACH EYE BID 10/10/17 [Brimonidine 0.2% 5Ml Bottle] Calcium Carbonate [Emerson-Gest] 500 mg PO Q2H PRN PRN 10/10/17 Nitroglycerin [Nitrostat] 0.4 mg SL PRN PRN 10/10/17 Quetiapine Fumarate [Seroquel] 200 mg PO QHS 10/10/17 Clonazepam [Klonopin] 0.25 mg PO DAILY PRN PRN 10/11/17 Polyethylene Glycol 3350 [Miralax] 17 gm PO DAILY 11/04/17 Hydrocodone Bitart/Apap 5-325 1 tab PO Q6H PRN PRN 3 Days #10 tab 11/05/17 [Oglesby 5MG-325MG] Surgical History: noncontributory Psychiatric History: - - dementia Lives: - - assisted living Smoking Status: Former smoker Tobacco Use: Non-smoker Alcohol: None Drugs: None - *Family History Maternal Family History: Family History (Last Reviewed 11/09/17 @ 11:05 by Gael Mcbride MD) Uncle CVA (cerebral vascular accident) Grandfather Alcoholism Father Myocardial infarction Heart disease CVA (cerebral vascular accident) CAD (coronary artery disease) Mother CVA (cerebral vascular accident) Breast cancer Rheumatoid arthritis History Items: Unknown, No pertinent history Paternal Family History: Family History (Last Reviewed 11/09/17 @ 11:05 by Gael Mcbride MD) Uncle CVA (cerebral vascular accident) Grandfather Alcoholism Father Myocardial infarction Heart disease CVA (cerebral vascular accident) CAD (coronary artery disease) Mother CVA (cerebral vascular accident) Breast cancer Rheumatoid arthritis History Items: Unknown, No pertinent history Patient Problems: Active and Suspected Problems (Last Reviewed 11/09/17 @ 11:04 by Gael Mcbride MD) Altered mental status, unspecified (Acute) Generalized weakness (Acute) - Physical Exam General: Alert, Cooperative, No apparent distress Neurological: Cranial nerves II-XII grossly intact Psych/Mental Status: Normal Affect Vital Signs Temp Pulse Resp BP Pulse Ox 36.8 C 102 H 16 114/61 94 11/09/17 09:56 11/09/17 09:56 11/09/17 09:56 11/09/17 09:56 11/09/17 09:56 Oxygen Flow Rate (L/min) [6] 3 Oxygen Flow Rate (L/min) [5] 3 Oxygen Flow Rate (L/min) [4] 3 Oxygen Flow Rate (L/min) [3] 3 Oxygen Flow Rate (L/min) [2] 3 Oxygen Flow Rate (L/min) [1 ( 3 Initial Baseline)] Oxygen Flow Rate (L/min) 3 Oxygen Delivery Method [7] Nasal Cannula Oxygen Delivery Method [6] Nasal Cannula Oxygen Delivery Method [5] Nasal Cannula Oxygen Delivery Method [4] Nasal Cannula Oxygen Delivery Method [3] Nasal Cannula Oxygen Delivery Method [2] Nasal Cannula Oxygen Delivery Method [1 ( Nasal Cannula Initial Baseline)] Oxygen Delivery Method Nasal Cannula Weight: 87.3 kg Body Mass Index (BMI) 27.6 Intake and Output for Last 24 Hours 11/07/17 11/08/17 11/09/17 23:59 23:59 23:59 Intake Total 900 / 900 0 / 0 Output Total 550 / 550 0 / 0 Balance 350 / 350 0 / 0 Laboratory Tests Past 24 Hrs 11/09/17 11/09/17 11/09/17 05:45 05:45 09:10 WBC 8.9 RBC 4.54 L Hgb 13.1 Hct 41.4 MCV 91.2 MCH 28.9 MCHC 31.6 L RDW 14.7 H RDW Differential 48.7 H Plt Count 221 MPV 9.3 Immature Gran % (Auto) 0.200 Neut % (Auto) 72.8 H Lymph % (Auto) 14.1 L Vermilion % (Auto) 9.4 Eos % (Auto) 3.3 Baso % (Auto) 0.2 Absolute Neuts (auto) 6.5 Absolute Lymphs (auto) 1.26 Total Counted Not Reportable Sodium 139 Potassium 4.0 Chloride 102 Carbon Dioxide 29.0 Anion Gap 8 BUN 12 Creatinine 0.90 Estim Creat Clear Calc 67.59 Est GFR (MDRD) Af Amer 104 Est GFR (MDRD) Non-Af 86 BUN/Creatinine Ratio 13.3 Glucose 99 Calcium 7.9 L Troponin I 0.122 H Current Home Med List Medication Instructions Recorded Confirmed Type Duloxetine Hcl [Cymbalta] 30 mg PO BID 05/31/14 11/08/17 History Mirtazapine [Remeron] 7.5 mg PO QHS tab 09/20/16 11/08/17 Rx Pravastatin [Pravachol] 40 mg PO DAILY@2200 tab 09/20/16 11/08/17 Rx Senna/Docusate Sodium [Senokot-S] 2 tab PO DAILY #60 tab 09/20/16 11/08/17 Rx Clopidogrel Bisulfate [Plavix] 75 mg PO DAILY 10/03/16 11/08/17 History Tamsulosin HCl [Flomax] 0.4 mg PO DAILY 10/03/16 11/08/17 History Aspirin [Aspirin, Baby] 81 mg PO DAILY@0800 #90 tab.chew 10/06/16 11/08/17 Rx Clonazepam [Klonopin] 0.25 mg PO DAILY 05/14/17 11/08/17 History Clonazepam [Klonopin] 0.5 mg PO QHS 05/14/17 11/08/17 History Acetaminophen [Tylenol Tablet] 1,000 mg PO BID 10/10/17 11/08/17 History Brimonidine Tartrate 0.2% 1 drp EACH EYE BID 10/10/17 11/08/17 History [Brimonidine 0.2% 5Ml Bottle] Calcium Carbonate [Emerson-Gest] 500 mg PO Q2H PRN PRN 10/10/17 11/08/17 History Nitroglycerin [Nitrostat] 0.4 mg SL PRN PRN 10/10/17 11/08/17 History Quetiapine Fumarate [Seroquel] 200 mg PO QHS 10/10/17 11/08/17 History Clonazepam [Klonopin] 0.25 mg PO DAILY PRN PRN 10/11/17 11/08/17 History Polyethylene Glycol 3350 [Miralax] 17 gm PO DAILY 11/04/17 11/08/17 History Hydrocodone Bitart/Apap 5-325 1 tab PO Q6H PRN PRN 3 Days #10 tab 11/05/1711/08 Rx [Oglesby 5MG-325MG] Current Medications Generic Name Dose Route Start Last Admin Trade Name Freq PRN Reason Stop Dose Admin Acetaminophen 1,000 mg 11/08/17 13:00 11/09/17 10:04 Tylenol PO 1,000 mg BID TRAVIS Administration Hydrocodone Bitart/Acetaminophen 1 tablet 11/08/17 11:43 Oglesby 5mg-325mg PO Q6H PRN PRN PAIN Aspirin 81 mg 11/09/17 08:00 11/09/17 10:02 Aspirin, Baby PO 81 mg DAILY@0800 TRAVIS Administration Brimonidine Tartrate 2 drop 11/08/17 13:00 11/09/17 10:02 Brimonidine 0.2% 5ml Bottle EACH EYE 2 drop BID TRAVIS Administration Clonazepam 0.25 mg 11/08/17 13:00 11/09/17 10:12 Klonopin PO 0.25 mg DAILY TRAVIS Administration Clopidogrel Bisulfate 75 mg 11/08/17 13:00 11/09/17 10:04 Plavix PO 75 mg DAILY TRAVIS Administration Duloxetine HCl 30 mg 11/08/17 13:00 11/09/17 10:03 Cymbalta PO 30 mg BID TRAVIS Administration Heparin Sodium (Porcine) 5,000 unit 11/08/17 14:00 11/09/17 06:52 Heparin Na SC 5,000 unit Q8 TRAVIS Administration Sodium Chloride 500 mls @ 999 mls/hr 11/08/17 07:22 11/08/17 07:51 IV 999 mls/hr .Q31M ONE Administration Mirtazapine 7.5 mg 11/08/17 22:00 11/08/17 22:43 Remeron PO 7.5 mg QHS TRAVIS Administration Polyethylene Glycol 17 gm 11/08/17 13:00 11/09/17 10:09 Miralax PO 17 gm DAILY TRAVIS Administration Pravastatin Sodium 40 mg 11/08/17 22:00 11/08/17 22:42 Pravachol PO 40 mg DAILY@2200 TRAVIS Administration Quetiapine Fumarate 200 mg 11/08/17 22:00 11/08/17 22:42 Seroquel PO 200 mg QHS TRAVIS Administration Senna/Docusate Sodium 2 tablet 11/08/17 13:00 11/09/17 10:04 Senokot-S, Stacy-Colace PO 2 tablet DAILY TRAVIS Administration Sodium Chloride 5 - 30 ml 11/08/17 10:57 IV UD PRN SALINE FLUSH Tamsulosin HCl 0.4 mg 11/08/17 13:00 11/09/17 10:09 Flomax PO 0.4 mg DAILY TRAVIS Administration MRI reviewed. He has multiple punctate acute infarcts bilaterally. These are all very small. 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 possible hypercoag state due to ?lung ca keep sbp>120, ivfs asa for now await echo fall risk, recent lung bx makes anticoag problematic
[2017-11-09] MEDS: Dextrose 5%/0.9% NaCl 1,000 ML 75 ML IV (12:05)
--- NOTE | 2017-11-09 16:44 | CASEMGMT ---
Social Work: Met with patient in room. Patient states that he lives at [facility] and has lived there for a year. Patient states that he receives assistance for bathing and dressing but is able to feed self. Patient uses walker to ambulate and per patient needs assistance with walking. Patient states he will wants to return to [facility] at D/C. This SW asked patient if he would be agreeable to SNF for therapy. Patient would like SW to speak with daughter. Patient giving this SW permission to contact daughter Liliana to discuss D/C planning. TC to daughter Liliana. Liliana states that she will be talking to patient tonight about SNF placement as she does not feel that [facility] level of care is enough for patient at this time. Liliana prefers TCU for skilled stay but will also discuss this with patient. Liliana to call this SW tomorrow with final decision. TC to [facility] in TCU. Referral made and [facility] states they will most likely have beds and will be able to accept patient. Will follow to assist as needed with D/C planning. PLAN: Patient to be discharges to skilled level of care when medically ready. DERRICK Dugan
--- NOTE | 2017-11-09 18:10 | PN_ITS ---
Patient Problems: Active and Suspected Problems (Last Reviewed 11/09/17 @ 11:04 by Geal Mcbride MD) Altered mental status, unspecified (Acute) Generalized weakness (Acute) Subjective: Patient seen and examined today, he does not respond appropriately to questioning and is mostly silent. - Physical Exam General: Alert, No apparent distress, Well developed HEENT: Atraumatic, PERRLA, EOMI, Normocephalic Oral: Moist Mucosa Neck: Supple, No Nuchal Rigidity, Trachea Midline, Thyroid Normal Size and Texture Lungs: Clear to auscultation, Normal air movement, No rhonchi, No wheeze, No rales Cardiovascular: Regular rate, Regular Rhythm, Normal S1, Normal S2, No murmurs, No Ectopic Activity, PMI Normal, No rub noted, No Gallop Abdomen: Bowel Sounds Present, Soft, Non Tender, No hernias noted Extremities: No clubbing, No cyanosis, No edema Neurological: Cranial nerves II-XII grossly intact, Neuro grossly intact Psych/Mental Status: Flat Affect Vital Signs Temp Pulse Resp BP Pulse Ox 98.9 F 91 16 112/61 96 11/09/17 14:00 11/09/17 14:50 11/09/17 14:00 11/09/17 14:00 11/09/17 14:00 Oxygen Flow Rate (L/min) [6] 3 Oxygen Flow Rate (L/min) [5] 3 Oxygen Flow Rate (L/min) [4] 3 Oxygen Flow Rate (L/min) [3] 3 Oxygen Flow Rate (L/min) [2] 3 Oxygen Flow Rate (L/min) [1 ( 3 Initial Baseline)] Oxygen Flow Rate (L/min) 2 Oxygen Delivery Method [7] Nasal Cannula Oxygen Delivery Method [6] Nasal Cannula Oxygen Delivery Method [5] Nasal Cannula Oxygen Delivery Method [4] Nasal Cannula Oxygen Delivery Method [3] Nasal Cannula Oxygen Delivery Method [2] Nasal Cannula Oxygen Delivery Method [1 ( Nasal Cannula Initial Baseline)] Oxygen Delivery Method Nasal Cannula Weight: 87.3 kg Body Mass Index (BMI) 27.6 Intake and Output for Last 24 Hours 11/07/17 11/08/17 11/09/17 23:59 23:59 23:59 Intake Total 900 / 900 360 / 360 Output Total 550 / 550 0 / 0 Balance 350 / 350 360 / 360 Laboratory Tests Past 24 Hrs 11/09/17 11/09/17 11/09/17 05:45 05:45 09:10 WBC 8.9 RBC 4.54 L Hgb 13.1 Hct 41.4 MCV 91.2 MCH 28.9 MCHC 31.6 L RDW 14.7 H RDW Differential 48.7 H Plt Count 221 MPV 9.3 Immature Gran % (Auto) 0.200 Neut % (Auto) 72.8 H Lymph % (Auto) 14.1 L [place] % (Auto) 9.4 Eos % (Auto) 3.3 Baso % (Auto) 0.2 Absolute Neuts (auto) 6.5 Absolute Lymphs (auto) 1.26 Total Counted Not Reportable Sodium 139 Potassium 4.0 Chloride 102 Carbon Dioxide 29.0 Anion Gap 8 BUN 12 Creatinine 0.90 Estim Creat Clear Calc 67.59 Est GFR (MDRD) Af Amer 104 Est GFR (MDRD) Non-Af 86 BUN/Creatinine Ratio 13.3 Glucose 99 Calcium 7.9 L Troponin I 0.122 H Medical Necessity - Tobacco Use Smoking Status: Former smoker Tobacco Use: Non-smoker Assessment/Plan All Active Problems (Last Reviewed 11/09/17 @ 11:04 by Gael Mcbride MD) Altered mental status, unspecified (Acute) Generalized weakness (Acute) Lung mass (Acute) Chest pain (Acute) Hypokalemia (Acute) Hypocalcemia (Acute) Closed head injury (Resolved) Debility (Acute) Fall (Resolved) #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- continue PT OT, continue aspirin and Plavix, echocardiogram today did not show any evidence of thrombus or PFO #2 generalized weakness-probably multifactorial in nature including multiple embolic strokes and probable right sided lung cancer-continue PT and OT #3 increased confusion on a backdrop of dementia and acute stroke-continue supportive care, patient will need placed in a retirement facility #4 right lung mass-believed to be carcinoma, mass was biopsied yesterday, cytology is pending #5 elevated troponin-probably secondary to CVA, troponin was repeated this morning and it was 0.122 #5 hypertension #6 coronary artery disease Patient is a DNR CC arrest Code Visit Inpatient E&M: 03429 Subs Hosp L2
[2017-11-09] MEDS: QUEtiapine 100 MG Tablet 200 MG PO (21:59)
[2017-11-09] MEDS: Pravastatin 40 MG Tablet PO (21:59)
[2017-11-09] MEDS: Mirtazapine 15 MG Tablet 7.5 MG PO (21:59)
[2017-11-09 22:36] LABS: Bedside Glucose 118 mg/dL (70-110)
[2017-11-10] VITALS (16 sets, daily range): BP systolic 98–141; BP diastolic 58–78; PULSE 81–105; RESP 16–28; TEMP 36.3–38.1; O2SAT 93–97; BMI 27.6
[2017-11-10 00:26] LABS: Bedside Glucose 119 mg/dL (70-110)
--- NOTE | 2017-11-10 00:30 | NURSING ---
Pt. noted to be clammy and slightly diaphoretic. Blood glucose checked, was 119. New IV started and IVF resumed at 75 cc/hr. VS 98.0, 103, 24, 104/58, 94% 2L NC. Will continue to monitor.
[2017-11-10] MEDS: 0.9% NaCl Peripheral Flush Adult/Peds IV ×2 (00:34→21:57)
[2017-11-10] MEDS: Dextrose 5%/0.9% NaCl 1,000 ML 75 ML IV ×2 (04:55→17:50)
[2017-11-10] MEDS: Heparin Injection (Vial) 5,000 UNIT/ML VIAL 5000 UNIT SC ×3 (05:01→22:30)
[2017-11-10] MEDS: Aspirin 81 MG TAB.CHEW PO (08:05)
[2017-11-10] MEDS: DULoxetine Hcl 30 MG Capsule PO ×2 (08:06→22:30)
[2017-11-10] MEDS: BRIMONIDINE 0.2% 5ML BOTTLE 2 DRP EACH EYE ×2 (08:06→22:29)
[2017-11-10] MEDS: Senna/Docusate Sodium 1 Tablet 2 TABLET PO (08:07)
[2017-11-10] MEDS: Clopidogrel Bisulfate 75 MG Tablet PO (08:07)
[2017-11-10] MEDS: Tamsulosin HCl 0.4 MG Capsule PO (08:07)
[2017-11-10] MEDS: Polyethylene Glycol 3350 17 GM PACKET PO (08:07)
[2017-11-10] MEDS: Acetaminophen 500 MG Tablet 1000 MG PO ×2 (08:08→22:29)
[2017-11-10] MEDS: clonazePAM 0.5 MG Tablet 0.25 MG PO (08:09)
--- NOTE | 2017-11-10 09:44 | CASEMGMT ---
Social Work: Spoke with Dr. Adler who states that patient will be ready for D/c tomorrow. TC to call to [facility] in [facility]CU to notify that patient will be ready for D/C tomorrow. [facility] states they are unable to accept patient due to patient being on Seroquel as this is their guideline. TC to patient's daughter Liliana. Liliana aware that patient is unable to be discharged to TCU. This SW patient and family would be willing to return to [facility] as this is where patient came from. Daughter is unsure if [facility] will accept patient back although the ultimate patient/family goal is to return to [facility]. Daughter giving this permission to call [facility]. TC to LEANDRO Reis at [facility]. Smiley states [facility] is able to take patient back and will call daughter to let her know. SW to continue to follow to assist with d/c planning as needed. PLAN: Tentative plan is for patient to return to [facility] [place]. DERRICK Dugan
--- NOTE | 2017-11-10 12:29 | CASEMGMT ---
Social Work: Met with patient and daughter in room. Patient and daughter prefer pt go to a SNF verses returning to [facility] at this time. Patient's daughter asking this SW to send referral to the [facility]. Patient agreeable to this plan. Daughter states that her may go and take a tour of the facility. TC to Graciela at the [facility]. Graciela states that skilled beds are available and is asking for clinicals to be faxed. Graciela also aware that family may come to facility for tour. SW to continue to follow to assist with D/C planning. PLAN: Patient to be discharged to skilled level of care when medically ready. DERRICK Allen
--- NOTE | 2017-11-10 16:50 | PCM.PROGNOTE ---
Patient Problems: Active and Suspected Problems (Last Reviewed 11/09/17 @ 11:04 by Gael Mcbride MD) Altered mental status, unspecified (Acute) Generalized weakness (Acute) Subjective: No complaints. Not answering questions correctly, providing answers that do not make sense for the question that was asked. Seems pleasant and without distress. - Physical Exam General: Alert, Cooperative, Confused HEENT: Atraumatic, PERRLA, EOMI, Normocephalic Neck: Supple, No JVD, Negative Carotid Bruits Lungs: Clear to auscultation, Normal air movement Cardiovascular: Regular rate, No murmurs Abdomen: Bowel Sounds Present, Soft, Non Tender Extremities: No edema, Capillary Refill Less than 3 Seconds Skin: No rashes, No breakdown Musculoskeletal: No Tenderness to Palpation of Joints or Extremities Neurological: Cranial nerves II-XII grossly intact Psych/Mental Status: Normal Affect, Appropriate Vital Signs Temp Pulse Resp BP Pulse Ox 98.4 F 81 20 H 128/68 H 94 11/10/17 16:10 11/10/17 16:10 11/10/17 16:10 11/10/17 16:10 11/10/17 16:10 Oxygen Flow Rate (L/min) [6] 3 Oxygen Flow Rate (L/min) [5] 3 Oxygen Flow Rate (L/min) [4] 3 Oxygen Flow Rate (L/min) [3] 3 Oxygen Flow Rate (L/min) [2] 3 Oxygen Flow Rate (L/min) [1 ( 3 Initial Baseline)] Oxygen Flow Rate (L/min) 1 Oxygen Delivery Method [7] Nasal Cannula Oxygen Delivery Method [6] Nasal Cannula Oxygen Delivery Method [5] Nasal Cannula Oxygen Delivery Method [4] Nasal Cannula Oxygen Delivery Method [3] Nasal Cannula Oxygen Delivery Method [2] Nasal Cannula Oxygen Delivery Method [1 ( Nasal Cannula Initial Baseline)] Oxygen Delivery Method Room Air Weight: 192 lb 7.417 oz Body Mass Index (BMI) 27.6 Intake and Output for Last 24 Hours 11/08/17 11/09/17 11/10/17 23:59 23:59 23:59 Intake Total 900 / 900 1200 / 1200 1008 / 1008 Output Total 550 / 550 550 / 550 Balance 350 / 350 650 / 650 1008 / 1008 POC Glucose 11/10/17 11/09/17 00:22 21:11 POC Glucose 119 H 118 H Medical Necessity - Tobacco Use Smoking Status: Former smoker Tobacco Use: Non-smoker Assessment/Plan All Active Problems (Last Reviewed 11/09/17 @ 11:04 by Gael Mcbride MD) Altered mental status, unspecified (Acute) Generalized weakness (Acute) Lung mass (Acute) Chest pain (Acute) Hypokalemia (Acute) Hypocalcemia (Acute) Closed head injury (Resolved) Debility (Acute) Fall (Resolved) 1. Multiple embolic strokes, BL parietal, right frontal lobes - PTOT> asa, plavix, statin. Echo neg for thrombus/pfo - EF 65% st1 diastolic dysfxn. 2. Gen weakness - PTOT 3. Confusion - combination of dementia and strokes 4. Right lung mass - pathology pending 5. Elevated troponin - likely 2/2 CVA, trending down 6. HTN - stable 7. Hx CAD 8. Anx/Dep - continue Neurontin, Seroquel, pain, Cymbalta DVT ppx: DC planning: SNF This patient was seen by Yo Ennis PA-C under the supervision of Doctor Perez.
--- NOTE | 2017-11-10 17:48 | CASEMGMT ---
Social Work: TC from Graciela at [facility]. Graciela states that [facility] is able to accept patient. TC to patient's daughter, Liliana. Liliana aware that the [facility] is able to accept patient. PLAN: Patient to be discharged to the [facility] for Skilled care when medically ready. DERRICK Dugan
[2017-11-10] MEDS: Pravastatin 40 MG Tablet PO (22:30)
[2017-11-10] MEDS: Mirtazapine 15 MG Tablet 7.5 MG PO (22:31)
[2017-11-10] MEDS: QUEtiapine 100 MG Tablet 200 MG PO (22:31)
[2017-11-10 23:06] LABS: Bedside Glucose 120 mg/dL (70-110)
[2017-11-10] MEDS: Calcium Carbonate 500 MG Tablet 1000 MG PO (23:21)
[2017-11-11] VITALS (8 sets, daily range): BP systolic 103–151; BP diastolic 57–78; PULSE 79–103; RESP 16–20; TEMP 36.7–37.7; O2SAT 94–95; BMI 27.6
[2017-11-11] MEDS: Dextrose 5%/0.9% NaCl 1,000 ML 75 ML IV (05:29)
[2017-11-11] MEDS: Heparin Injection (Vial) 5,000 UNIT/ML VIAL 5000 UNIT SC (05:30)
[2017-11-11 07:00] LABS: Bedside Glucose 130 mg/dL (70-110)
[2017-11-11] MEDS: BRIMONIDINE 0.2% 5ML BOTTLE 2 DRP EACH EYE (08:49)
[2017-11-11] MEDS: Aspirin 81 MG TAB.CHEW PO (08:49)
[2017-11-11] MEDS: Tamsulosin HCl 0.4 MG Capsule PO (08:49)
[2017-11-11] MEDS: DULoxetine Hcl 30 MG Capsule PO (08:49)
[2017-11-11] MEDS: Senna/Docusate Sodium 1 Tablet 2 TABLET PO (08:50)
[2017-11-11] MEDS: Clopidogrel Bisulfate 75 MG Tablet PO (08:50)
[2017-11-11] MEDS: Acetaminophen 500 MG Tablet 1000 MG PO (08:50)
[2017-11-11] MEDS: clonazePAM 0.5 MG Tablet 0.25 MG PO (08:52)
--- NOTE | 2017-11-11 12:12 | PCM.TXEXTCAR ---
- Diet 11/08/17 10:02 Diet: Cardiac/Low Cholesterol Food consistency:: Soft Liquid Consistency:: Regular/Thin Dietary Modifications:: Soft Diet - Routine Orders/Code Status Suppository Type: Dulcolax 10mg Suppository Frequency: Daily PRN O2 Frequency: PRN Keep PO Greater than or Equal to (%): 90 [facility] - Wound(s) NOSE Wound Type: broken nose top of head Wound Type: Skin Tear posterior right side of back Wound Type: Surgical Incision anterior right side of chest Wound Type: Surgical Incision right dee Wound Type: Skin Tear L knee Wound Type: Abrasion - Therapies Physical Therapy: Eval and Treat Occupational Therapy: Eval and Treat - Problem/Diagnosis (1) CVA (cerebral vascular accident) Status: Acute Current Visit: Yes (2) Generalized weakness Status: Chronic Current Visit: Yes (3) Lung mass Status: Chronic Current Visit: No (4) Debility Status: Chronic Current Visit: No (5) Dementia Status: Chronic Current Visit: No (6) CAD (coronary artery disease) Status: Chronic Current Visit: No (7) HTN (hypertension) Status: Chronic Current Visit: No (8) HLD (hyperlipidemia) Status: Chronic Current Visit: No (9) Asthma Status: Chronic Current Visit: No (10) Depression Status: Chronic Current Visit: No (11) CKD (chronic kidney disease), stage III Status: Chronic Current Visit: No - Allergies/Procedures Done in Hospital Allergies/Adverse Reactions: Allergies fentanyl [From Duragesic] Allergy (Verified 11/08/17 07:18) Unknown Penicillins Allergy (Verified 11/08/17 07:18) Swelling Procedures: 2-D Echocardiogram - Type of Care/Length of Stay Estimated LOS: Convalescent Care Less Than 30 days Type of Care Needed: Skilled Rehab Potential: Fair Prognosis: Fair - Additional Orders/Day of Discharge Day of Discharge: 11/11/17 - Dietary and Speech Recommendations Speech Linguistic Eval Summary: Pt is an 82 y/o male who presented to [facility] ED from [facility] on 11/08/2017 d/t MS change w/ right sided weakness and slurred speech. Daughter reports MS changes have been progressive over the past month w/ daily falls for the past 4 days prior to admission. 11/08/2017 CT/Brain/Head without Contrast IMPRESSION: Chronic involutional changes of the brain. No demonstrated acute intracranial process. 11/08/2017 MRI/Brain without Contrast IMPRESSION: Moderate atrophy and periventricular white matter ischemic changes. Multiple small foci of acute ischemia within the bilateral parietal and right frontal lobes suggesting possibility of embolic disease however clinical correlation is recommended. 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 MRA recommended for further evaluation. Patient is and lives in an [place]. Does not drive, manage own meds, finances or meals. Informal cognitive-linguistic evaluation was completed at bedside w/ daughter and son-in-law present for evaluation. Oriented to name, age, and general reason for hospitalization. Reoriented to place (WVM), month (Dec), Year (2007) and GONZALO (Tue). Auditory comprehension grossly WNL answering simple complex yes/no ?s w/ 100% accuracy and executing 1 3 step commands w/ 100% accuracy. Patient is [place], requiring slow rate of speech, increased volume and repetition of statements to ensure comprehension. No instances of anomia appreciated in conversational speech. Brock to name 9 items per concrete category w/in 60 seconds, only 3 per abstract category w/in 60 seconds w/ limited category shift appreciated from concrete (animals) to abstract (words starting w/ letter M) w/ patient only naming animals starting w/ M during abstract naming task. 3 word recall: immediate 3/3 I, delayed 0/3 I, 0/3 w/ category cue, 2/3 when given choice of 3. Functional problem solving and reasoning skills appreciated w/ I ability to recall emergency # 911 and able to provide 3 appropriate reasons for dialing 911. Able to read and demonstrate comprehension at the word level w/out difficulty. Increased difficulty w/ both reading and demonstrating comprehension as sentence length increased beyond 3 words. Impaired visual perception/hand-eye coordination appreciated. Mild dysarthria persists w/ LEFT labial asymmetry noted at rest and w/ labial retraction. Family present and feels that speech is significantly improved since admission but still remains mildly dysarthric at this time. Family additionally feels that cognitive function is at/near baseline. Pt consuming regular texture and thin liquid noon meal during evaluation w/ assistance required to eat d/t UE discoordination/strength. Tolerating diet well. No overt s/s aspiration appreciated. Continue current diet w/ supervision/assist as tolerated. - Follow Up Care Primary Care Physician: Chase Rene MD [Primary Care Provider] - Please follow up with your Primary Care Physician in: 1-2 weeks Please Follow Up With: Gael Mcbride MD When: 3-4 weeks
--- NOTE | 2017-11-11 12:17 | TREXTCAR_ITS ---
- Diet 11/08/17 10:02 Diet: Cardiac/Low Cholesterol Food consistency:: Soft Liquid Consistency:: Regular/Thin Dietary Modifications:: Soft Diet - Routine Orders/Code Status Suppository Type: Dulcolax 10mg Suppository Frequency: Daily PRN O2 Frequency: PRN Keep PO Greater than or Equal to (%): 90 Code [facility] - Wound(s) NOSE Wound Type: broken nose top of head Wound Type: Skin Tear posterior right side of back Wound Type: Surgical Incision anterior right side of chest Wound Type: Surgical Incision right dee Wound Type: Skin Tear L knee Wound Type: Abrasion - Therapies Physical Therapy: Eval and Treat Occupational Therapy: Eval and Treat - Problem/Diagnosis (1) CVA (cerebral vascular accident) Status: Acute Current Visit: Yes (2) Generalized weakness Status: Chronic Current Visit: Yes (3) Lung mass Status: Chronic Current Visit: No (4) Debility Status: Chronic Current Visit: No (5) Dementia Status: Chronic Current Visit: No (6) CAD (coronary artery disease) Status: Chronic Current Visit: No (7) HTN (hypertension) Status: Chronic Current Visit: No (8) HLD (hyperlipidemia) Status: Chronic Current Visit: No (9) Asthma Status: Chronic Current Visit: No (10) Depression Status: Chronic Current Visit: No (11) CKD (chronic kidney disease), stage III Status: Chronic Current Visit: No - Allergies/Procedures Done in Hospital Allergies/Adverse Reactions: Allergies fentanyl [From Duragesic] Allergy (Verified 11/08/17 07:18) Unknown Penicillins Allergy (Verified 11/08/17 07:18) Swelling Procedures: 2-D Echocardiogram - Type of Care/Length of Stay Estimated LOS: Convalescent Care Less Than 30 days Type of Care Needed: Skilled Rehab Potential: Fair Prognosis: Fair - Additional Orders/Day of Discharge Day of Discharge: 11/11/17 - Dietary and Speech Recommendations Speech Linguistic Eval Summary: Pt is an 82 y/o male who presented to [facility] ED from [facility] on 11/08/2017 d/t MS change w/ right sided weakness and slurred speech. Daughter reports MS changes have been progressive over the past month w/ daily falls for the past 4 days prior to admission. 10/2017 CT/Brain/Head without Contrast IMPRESSION: Chronic involutional changes of the brain. No demonstrated acute intracranial process. 11/08/2017 MRI/Brain without Contrast IMPRESSION: Moderate atrophy and periventricular white matter ischemic changes. Multiple small foci of acute ischemia within the bilateral parietal and right frontal lobes suggesting possibility of embolic disease however clinical correlation is recommended. 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 MRA recommended for further evaluation. Patient is and lives in an [place]. Does not drive, manage own meds, finances or meals. Informal cognitive- linguistic evaluation was completed at bedside w/ daughter and son-in-law present for evaluation. Oriented to name, age, and general reason for hospitalization. Reoriented to place ([place]), month (Dec), Year (2007) and GONZALO ( Tue). Auditory comprehension grossly WNL ? answering simple ? complex yes/no ?s w/ 100% accuracy and executing 1 ? 3 step commands w/ 100% accuracy. Patient is [place], requiring slow rate of speech, increased volume and repetition of statements to ensure comprehension. No instances of anomia appreciated in conversational speech. Brock to name 9 items per concrete category w/in 60 seconds, only 3 per abstract category w/in 60 seconds w/ limited category shift appreciated from concrete (animals) to abstract (words starting w/ letter M) w/ patient only naming animals starting w/ M during abstract naming task. 3 word recall: immediate ? 3/3 I, delayed 0/3 I, 0/3 w/ category cue, 2/3 when given choice of 3. Functional problem solving and reasoning skills appreciated w/ I ability to recall emergency # 911 and able to provide 3 appropriate reasons for dialing 911. Able to read and demonstrate comprehension at the word level w/out difficulty. Increased difficulty w/ both reading and demonstrating comprehension as sentence length increased beyond 3 words. Impaired visual perception/hand-eye coordination appreciated. Mild dysarthria persists w/ LEFT labial asymmetry noted at rest and w/ labial retraction. Family present and feels that speech is significantly improved since admission but still remains mildly dysarthric at this time. Family additionally feels that cognitive function is at/near baseline. Pt consuming regular texture and thin liquid noon meal during evaluation w/ assistance required to eat d/t UE discoordination /strength. Tolerating diet well. No overt s/s aspiration appreciated. Continue current diet w/ supervision/assist as tolerated. - Follow Up Care Primary Care Physician: Chase Rene MD [Primary Care Provider] - Please follow up with your Primary Care Physician in: 1-2 weeks Please Follow Up With: Gael Mcbride MD When: 3-4 weeks
--- NOTE | 2017-11-11 12:39 | CASEMGMT ---
Social work: TC to [facility] to inform Graciel[facility] that patient is ready for D/C today. Graciela aware that son in law will pick patient up and transport patient to SNF. Orders and med list faxed to [facility]. GARFIELD completed and copy in chart. TC to daughter Liliana. Liliana aware that patient will be discharged today. Liliana states that her will pick patient up between 2:00-3:00pm. Spoke with patient in room. Patient also aware that he will be discharged to [facility] today. SW to follow to assist as needed with D/C planning. TC to [facility]. Spoke with Radha. Radha aware that patient will arrive between 2:00-3:00pm. PLAN: Patient to be discharged to [facility] for skilled care. Patient to be transported by family. DERRICK Dugan
--- NOTE | 2017-11-11 14:03 | PCM.DC.SUM ---
Discharge Date and Diagnosis - Problem List Patient Problems: Active and Suspected Problems (Last Reviewed 11/09/17 @ 11:04 by Gael Mcbride MD) Altered mental status, unspecified (Acute) CVA (cerebral vascular accident) (Acute) Date of Admission: 11/08/17 Date of Discharge: 11/11/17 - Primary Discharge Diagnosis Active and Suspected Problems (Last Reviewed 11/09/17 @ 11:04 by Gael Mcbride MD) Multiple acute embolic strokes, bilateral parietal, right frontal lobes Confusion secondary to acute strokes in combination with underlying dementia, suspect vascular based on MRI findings Generalized weakness Right lung mass- bx with atypical cells suspicious for nonsmall cell. 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 No demonstrated acute intracranial process. RAD/Chest 1 View IMPRESSION: Large right upper lobe mass, similar to prior study. Patchy right lower lobe airspace disease, likely representing a combination of consolidation and pleural effusion. CT/Biopsy/Inj or Needle Placement IMPRESSION: Successful CT-guided right lung biopsy x3. Pathology determined adequate tissue biopsy amount. MRI/Brain without Contrast IMPRESSION: Moderate atrophy and periventricular white matter ischemic changes. Multiple small foci of acute ischemia within the bilateral parietal and right frontal lobes suggesting possibility of embolic disease however clinical correlation is recommended. 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 MRA recommended for further evaluation Echo: Interpretation Summary The estimated ejection fraction is 65 %. Stage 1 diastolic dysfunction. Moderately dilated right ventricle. Right ventricular systolic pressure estimated to be 28 mmHg. Mild aortic stenosis. Compared to echo report dated 05/16/2017, no appreciable changes noted. The study was technically difficult. Contrast injection was performed. 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 HEENT: [place]Y AT [place] Neck: Supple NT CV: RRR no m/t/r/g/h Resp: CTA Abd: [id number] Soft NT no guarding or rigidity Ext: DP2+= no edema Skin: W/D normal turgor Lymph/Heme: No active bleeding or adenopathy Neuro: CN2-12 intact Hospital course: The patient is a 82 year old M with a history of dementia, CAD, hypertension, hyperlipidemia, anxiety depression, CKD stage III who presented from assisted living with increased confusion and generalized weakness that began the morning prior to presentation. He does have a history of dementia however he was more confused than normal. CT of the brain was negative in the emergency room he had a chest x-ray that showed a right upper lobe mass along with effusion or consolidation in the right lower lobe. He was admitted to the PCU with stroke workup. MRI demonstrated multiple embolic strokes as above. 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 Underwent a CT guided needle biopsy to assess the pathology of the lung mass-this demonstrated atypical cells suspicious for non-small cell. Neurology was consulted. The patient was already on aspirin, Plavix, statin these were continued. He did have an indeterminate troponin here which trended down and was felt to be secondary to acute CVA. He remained severely confused and debilitated and halfway was recommended. He remained clinically stable without any worsening of symptoms and was discharged to halfway when accepted. Discharged in stable condition and will need to follow-up with his PCP as well as with his neurologist. This patient was seen by Yo Ennis PA-C under the supervision of Doctor Perez. [] Discharge Diet: Low fat/ Low Cholesterol, 2000 mg Sodium Diet Discharge Activity: Return to Normal Activity Home Medications: Medications to take at Discharge Duloxetine Hcl [Cymbalta] 30 mg PO BID 05/31/14 Mirtazapine [Remeron] 7.5 mg PO QHS tab 09/20/16 Pravastatin [Pravachol] 40 mg PO DAILY@2200 tab 09/20/16 Senna/Docusate Sodium [Senokot-S] 2 tab PO DAILY #60 tab 09/20/16 Clopidogrel Bisulfate [Plavix] 75 mg PO DAILY 10/03/16 Tamsulosin HCl [Flomax] 0.4 mg PO DAILY 10/03/16 Aspirin [Aspirin, Baby] 81 mg PO DAILY@0800 #90 tab.chew 10/06/16 Acetaminophen [Tylenol Tablet] 1,000 mg PO BID 10/10/17 Brimonidine Tartrate 0.2% [Brimonidine 0.2% 5Ml Bottle] 1 drp EACH EYE BID 10/10/17 Nitroglycerin [Nitrostat] 0.4 mg SL PRN PRN 10/10/17 Quetiapine Fumarate [Seroquel] 200 mg PO QHS 10/10/17 Polyethylene Glycol 3350 [Miralax] 17 gm PO DAILY 11/04/17 Clonazepam [Klonopin] 0.25 mg PO DAILY PRN PRN 6 Days #3 tab 11/11/17 Hydrocodone Bitart/Apap 5-325 [[place] 5/325] 1 tab PO Q6H PRN PRN 3 Days #10 tab 11/11/17 Following Prescrptions Were Given to Patient: Clonazepam [Klonopin] 0.25 mg PO DAILY PRN PRN 6 Days #3 tab PRN Reason: Anxiety Hydrocodone Bitart/Apap 5-325 [[place] 5/325] 1 tab PO Q6H PRN PRN 3 Days #10 tab PRN Reason: Pain Primary Care Physician: Chase Rene MD [Primary Care Provider] - Please follow up with your Primary Care Physician in: 1-2 weeks Please Follow Up With: Gael Mcbride MD When: 3-4 weeks Disposition: Prison facility Minutes spent on discharge:: 35 Patient Condition:: Stable Medical Necessity - Tobacco Use Smoking Status: Former smoker Tobacco Use: Non-smoker Meaningful Use Info Meaningful Use Diagnoses (Choose all that apply): Ischemic CVA - CVA Therapy Assessed for PT,OT and/or ST?: Yes - Ischemic Stroke Antithrombotic order at d/c?: Yes Dx of Atrial fib/flutter?: No Statins at discharge?: Yes Primary Dx Acute Ischemic CVA?: Yes IV tPA ordered during stay?: No Reason IV t-PA not ordered: Procedure not Indicated
--- NOTE | 2017-11-11 14:12 | DS.PCM_ITS ---
Discharge Date and Diagnosis - Problem List Patient Problems: Active and Suspected Problems (Last Reviewed 11/09/17 @ 11:04 by Gael Mcbride MD) Altered mental status, unspecified (Acute) CVA (cerebral vascular accident) (Acute) Date of Admission: 11/08/17 Date of Discharge: 11/11/17 - Primary Discharge Diagnosis Active and Suspected Problems (Last Reviewed 11/09/17 @ 11:04 by Gael Mcbride MD) Multiple acute embolic strokes, bilateral parietal, right frontal lobes Confusion secondary to acute strokes in combination with underlying dementia, suspect vascular based on MRI findings Generalized weakness Right lung mass- bx with atypical cells suspicious for nonsmall cell. 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 No demonstrated acute intracranial process. RAD/Chest 1 View IMPRESSION: Large right upper lobe mass, similar to prior study. Patchy right lower lobe airspace disease, likely representing a combination of consolidation and pleural effusion. CT/Biopsy/Inj or Needle Placement IMPRESSION: Successful CT-guided right lung biopsy x3. Pathology determined adequate tissue biopsy amount. MRI/Brain without Contrast IMPRESSION: Moderate atrophy and periventricular white matter ischemic changes. Multiple small foci of acute ischemia within the bilateral parietal and right frontal lobes suggesting possibility of embolic disease however clinical correlation is recommended. 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 MRA recommended for further evaluation Echo: Interpretation Summary The estimated ejection fraction is 65 %. Stage 1 diastolic dysfunction. Moderately dilated right ventricle. Right ventricular systolic pressure estimated to be 28 mmHg. Mild aortic stenosis. Compared to echo report dated 05/16/2017, no appreciable changes noted. The study was technically difficult. Contrast injection was performed. 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 HEENT: [place] AT [place] Neck: Supple NT CV: RRR no m/t/r/g/h Resp: CTA Abd: [id number] Soft NT no guarding or rigidity Ext: DP2+= no edema Skin: W/D normal turgor Lymph/Heme: No active bleeding or adenopathy Neuro: CN2-12 intact Hospital course: The patient is a 82 year old M with a history of dementia, CAD, hypertension, hyperlipidemia, anxiety depression, CKD stage III who presented from assisted living with increased confusion and generalized weakness that began the morning prior to presentation. He does have a history of dementia however he was more confused than normal. CT of the brain was negative in the emergency room he had a chest x-ray that showed a right upper lobe mass along with effusion or consolidation in the right lower lobe. He was admitted to the PCU with stroke workup. MRI demonstrated multiple embolic strokes as above. 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 Underwent a CT guided needle biopsy to assess the pathology of the lung mass-this demonstrated atypical cells suspicious for non- small cell. Neurology was consulted. The patient was already on aspirin, Plavix, statin these were continued. He did have an indeterminate troponin here which trended down and was felt to be secondary to acute CVA. He remained severely confused and debilitated and senior living was recommended. He remained clinically stable without any worsening of symptoms and was discharged to senior living when accepted. Discharged in stable condition and will need to follow-up with his PCP as well as with his neurologist. This patient was seen by Yo Ennis PA-C under the supervision of Doctor Perez. [] Discharge Diet: Low fat/ Low Cholesterol, 2000 mg Sodium Diet Discharge Activity: Return to Normal Activity Home Medications: Medications to take at Discharge Duloxetine Hcl [Cymbalta] 30 mg PO BID 05/31/14 Mirtazapine [Remeron] 7.5 mg PO QHS tab 09/20/16 Pravastatin [Pravachol] 40 mg PO DAILY@2200 tab 09/20/16 Senna/Docusate Sodium [Senokot-S] 2 tab PO DAILY #60 tab 09/20/16 Clopidogrel Bisulfate [Plavix] 75 mg PO DAILY 10/03/16 Tamsulosin HCl [Flomax] 0.4 mg PO DAILY 10/03/16 Aspirin [Aspirin, Baby] 81 mg PO DAILY@0800 #90 tab.chew 10/06/16 Acetaminophen [Tylenol Tablet] 1,000 mg PO BID 10/10/17 Brimonidine Tartrate 0.2% [Brimonidine 0.2% 5Ml Bottle] 1 drp EACH EYE BID 10/10 Nitroglycerin [Nitrostat] 0.4 mg SL PRN PRN 10/10/17 Quetiapine Fumarate [Seroquel] 200 mg PO QHS 10/10/17 Polyethylene Glycol 3350 [Miralax] 17 gm PO DAILY 11/04/17 Clonazepam [Klonopin] 0.25 mg PO DAILY PRN PRN 6 Days #3 tab 11/11/17 Hydrocodone Bitart/Apap 5-325 [[place] 5/325] 1 tab PO Q6H PRN PRN 3 Days #10 tab 11/11/17 Following Prescrptions Were Given to Patient: Clonazepam [Klonopin] 0.25 mg PO DAILY PRN PRN 6 Days #3 tab PRN Reason: Anxiety Hydrocodone Bitart/Apap 5-325 [[place] 5/325] 1 tab PO Q6H PRN PRN 3 Days #10 tab PRN Reason: Pain Primary Care Physician: Chase Rene MD [Primary Care Provider] - Please follow up with your Primary Care Physician in: 1-2 weeks Please Follow Up With: Gael Mcbride MD When: 3-4 weeks Disposition: Group Home facility Minutes spent on discharge:: 35 Patient Condition:: Stable Medical Necessity - Tobacco Use Smoking Status: Former smoker Tobacco Use: Non-smoker Meaningful Use Info Meaningful Use Diagnoses (Choose all that apply): Ischemic CVA - CVA Therapy Assessed for PT,OT and/or ST?: Yes - Ischemic Stroke Antithrombotic order at d/c?: Yes Dx of Atrial fib/flutter?: No Statins at discharge?: Yes Primary Dx Acute Ischemic CVA?: Yes IV tPA ordered during stay?: No Reason IV t-PA not ordered: Procedure not Indicated
== END 2017-11-11 14:26 | disposition skilled nursing facility (03) | DRG 65 ==
LOC: ED 09:51 → PCU 10:16
PROVIDERS: Admitting Provider Internal Medicine; Emergency Provider Emergency Medicine; Family Provider Family Medicine; PCP Family Medicine; Visit Provider Internal Medicine
DX: I63.40 Cerebral infarction due to embolism of unspecified cerebral artery (principal); C34.91 Malignant neoplasm of unspecified part of right bronchus or lung; Z87.891 Personal history of nicotine dependence; Z66 Do not resuscitate; I25.10 Atherosclerotic heart disease of native coronary artery without angina pectoris; F01.50 Vascular dementia, unspecified severity, without behavioral disturbance, psychotic disturbance, mood disturbance, and anxiety; I12.9 Hypertensive chronic kidney disease with stage 1 through stage 4 chronic kidney disease, or unspecified chronic kidney disease; N18.3 Chronic kidney disease, stage 3 (moderate); E78.5 Hyperlipidemia, unspecified; F32.9 Major depressive disorder, single episode, unspecified; F41.8 Other specified anxiety disorders; R91.8 Other nonspecific abnormal finding of lung field
CPT/HCPCS: 36415; 70450; 70498; 70551; 71045; 77012; 80048; 82962; 83605; 84484; 85025; 85610; 85730; 87040; 88305; 88341; 88342; 92523; 92526; 93005; 93306; 97110; 97116; 97162; 97165; 97530; 97802; 99152; 99153; 99285; J7030; J7040; Q9957; Q9967; A4216; C8929

== ENCOUNTER → 2017-12-02 03:00 | Outpatient (REF) | payer MEDICARE, OTHER, SELFPAY ==
[2017-12-02 08:57] LABS: Color, Urine Yellow (Yellow); Glucose, Dipstick Normal (Normal); Ketone-Dipstick 5 mg/dl (Negative); Leukocyte Esterase-Dipstick 25 /ul (Negative); Nitrite-Dipstick Positive (Negative); Occult Blood-Urine 10 /ul (Negative); Protein-Dipstick 30 mg/dl (Negative); Urine Bilirubin Dipstick 1 mg/dL (Negative); Urine Clarity Cloudy (Clear); Urine Urobilinogen 4 mg/dl (Normal)
== END ==
LOC: OLS.DANBUR 03:00
PROVIDERS: Visit Provider Family Medicine
DX: N39.0 Urinary tract infection, site not specified (principal)
CPT/HCPCS: 81002; 87086